=== PATIENT | male | born 1970 | race American Indian/Alaskan Native ===

== ENCOUNTER 2016-08-27 02:54 | Emergency (ER) | payer MEDICARE ==
[2016-08-27] MEDS ORDERED: DECADRON IM ONE (04:30)
[2016-08-27] MEDS ORDERED: NORCO 10/325 PO ONE (04:30)
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
[2016-08-27 06:10] VITALS: BP 157/97
== END 2016-08-27 05:45 | disposition home or self-care (01) ==
LOC: ED 02:54
DX: M54.16 Radiculopathy, lumbar region (principal); M54.5 Low back pain; G89.29 Other chronic pain; I10 Essential (primary) hypertension; G43.909 Migraine, unspecified, not intractable, without status migrainosus; F20.9 Schizophrenia, unspecified
CPT/HCPCS: 96372; 99282; J1100

== ENCOUNTER 2016-11-01 02:50 | Emergency (ER) | payer MEDICARE ==
[2016-11-01 04:04] LABS: Anion Gap 19 mmol/L; Blood Urea Nitrogen 11 mg/dL (9-20); Calcium 8.9 mg/dL (8.4-10.2); Carbon Dioxide 21 mmol/L (22-30); Chloride 100.6 mmol/L (98-107); Glucose 117 mg/dL (75-100); Potassium 3.8 mmol/L (3.6-5.0); Sodium 137 mmol/L (137-145)
[2016-11-01 04:11] LABS: Urine Drugs of Abuse Note Disclamer
[2016-11-01 04:19] LABS: Eosinophils % (Auto) 3.3 % (0.0-4.3); Hematocrit 48.3 % (35.5-45.6); Hemoglobin 15.8 gm/dl (11.8-15.2); Mean Corpuscular HGB Conc 33 % (32-34); Mean Corpuscular Hemoglobin 29 pg (28-32); Mean Corpuscular Volume 89 fl (84-94); Platelet Count 240 K/mm3 (140-440); Red Blood Count 5.42 M/mm3 (3.65-5.03); Red Cell Distribution Width 14.4 % (13.2-15.2); White Blood Count 6.4 K/mm3 (4.5-11.0)
[2016-11-01 04:24] LABS: Bilirubin,Urine NEG (Negative); Blood,Urine SM (Negative); Ketones,Urine NEG (Negative); Leukocyte Esterase,Urine NEG (Negative); Mucus,Urine FEW /HPF; Nitrite,Urine NEG (Negative); Protein,Urine <15 mg/dL mg/dL (Negative); Urobilinogen,Urine < 2.0 mg/dL (<2.0); WBC,Urine < 1.0 /HPF (0.0-6.0)
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
[2016-11-01 08:20] VITALS: BP 140/90
--- NOTE | 2016-11-01 08:39 | Cat Scan Report ---
FINAL REPORT EXAM: CT HEAD/BRAIN WO CON HISTORY: headache TECHNIQUE: CT of the head was performed. No intravenous contrast was administered. PRIORS: None. FINDINGS: There is no evidence of intracranial hemorrhage. There is no edema, mass effect or midline shift. There are no abnormal extra-axial fluid collections. The ventricles are appropriate for brain volume. There is no skull fracture seen. Left maxillary sinus mucosal thickening. IMPRESSION: There is no acute intracranial abnormality identified. There is some left maxillary sinus mucosal thickening.
[2016-11-01] MEDS ORDERED: ATIVAN PO ONE (10:31)
[2016-11-01] MEDS ORDERED: FIORICET PO ONE (10:31)
== END 2016-11-01 10:52 | disposition home or self-care (01) ==
LOC: ED 02:50
DX: F25.0 Schizoaffective disorder, bipolar type (principal); R51 Headache; I10 Essential (primary) hypertension; G43.909 Migraine, unspecified, not intractable, without status migrainosus; F20.9 Schizophrenia, unspecified
CPT/HCPCS: 36415; 70450; 80048; 80307; 81001; 85025; 99284; G0480; 80320

== ENCOUNTER 2016-11-05 18:10 | Emergency (ER) | payer MEDICARE ==
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
[2016-11-05 20:33] VITALS: BP 142/102
== END 2016-11-05 20:37 | disposition home or self-care (01) ==
LOC: ED 18:10
DX: I10 Essential (primary) hypertension (principal); G43.909 Migraine, unspecified, not intractable, without status migrainosus; F20.9 Schizophrenia, unspecified; F17.200 Nicotine dependence, unspecified, uncomplicated
CPT/HCPCS: 99282

== ENCOUNTER 2017-02-28 12:37 | Emergency (ER) | payer MEDICARE ==
[2017-02-28 13:12] LABS: Basophils % (Auto) 0.9 % (0.0-1.8); Eosinophils % (Auto) 0.4 % (0.0-4.3); Hematocrit 45.7 % (35.5-45.6); Hemoglobin 15.3 gm/dl (11.8-15.2); Mean Corpuscular HGB Conc 34 % (32-34); Mean Corpuscular Hemoglobin 30 pg (28-32); Mean Corpuscular Volume 89 fl (84-94); Platelet Count 217 K/mm3 (140-440); Red Blood Count 5.16 M/mm3 (3.65-5.03); Red Cell Distribution Width 14.2 % (13.2-15.2); White Blood Count 6.1 K/mm3 (4.5-11.0)
[2017-02-28 13:22] LABS: Anion Gap 19 mmol/L; BUN/Creatinine Ratio 7.77; Blood Urea Nitrogen 7 mg/dL (9-20); Carbon Dioxide 25 mmol/L (22-30); Chloride 100.5 mmol/L (98-107); Glucose 108 mg/dL (75-100); Potassium 3.6 mmol/L (3.6-5.0); Sodium 141 mmol/L (137-145)
[2017-02-28 13:52] LABS: Urine Drugs of Abuse Note Disclamer
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
[2017-02-28 14:07] LABS: Bacteria,Urine 1+ /HPF (Negative); Bilirubin,Urine NEG (Negative); Blood,Urine SM (Negative); Ketones,Urine NEG (Negative); Leukocyte Esterase,Urine NEG (Negative); Mucus,Urine 2+ /HPF; Nitrite,Urine NEG (Negative); Protein,Urine <15 mg/dL mg/dL (Negative); Urobilinogen,Urine < 2.0 mg/dL (<2.0)
[2017-03-01] MEDS ORDERED: MOTRIN PO ONE (15:09)
[2017-03-02] MEDS ORDERED: MOTRIN PO ONE (06:04)
[2017-03-03 16:52] VITALS: BP 142/88
== END 2017-03-03 16:52 ==
LOC: EEVIPCON 12:37 → ED 12:37
DX: F23 Brief psychotic disorder (principal); R45.851 Suicidal ideations; R44.0 Auditory hallucinations; I10 Essential (primary) hypertension; G43.909 Migraine, unspecified, not intractable, without status migrainosus; F20.9 Schizophrenia, unspecified; F12.10 Cannabis abuse, uncomplicated; F14.10 Cocaine abuse, uncomplicated; F17.200 Nicotine dependence, unspecified, uncomplicated
CPT/HCPCS: 36415; 80048; 80307; 81001; 85025; 99285; G0480; 80320

== ENCOUNTER 2017-07-05 19:11 | Emergency (ER) | payer MEDICARE ==
[2017-07-05 20:44] LABS: Basophils # (Auto) 0.1 K/mm3 (0.0-0.1); Basophils % (Auto) 1.1 % (0.0-1.8); Eosinophils # (Auto) 0.1 K/mm3 (0.0-0.4); Eosinophils % (Auto) 1.1 % (0.0-4.3); Hematocrit 48.3 % (35.5-45.6); Hemoglobin 15.9 gm/dl (11.8-15.2); Lymphocytes % (Auto) 40.1 % (13.4-35.0); Mean Corpuscular HGB Conc 33 % (32-34); Mean Corpuscular Hemoglobin 30 pg (28-32); Mean Corpuscular Volume 90 fl (84-94); Monocytes # (Auto) 0.5 K/mm3 (0.0-0.8); Monocytes % (Auto) 9.7 % (0.0-7.3); Platelet Count 209 K/mm3 (140-440); Red Blood Count 5.35 M/mm3 (3.65-5.03); Red Cell Distribution Width 14.1 % (13.2-15.2)
[2017-07-05 20:46] LABS: BUN/Creatinine Ratio 10; Blood Urea Nitrogen 11 mg/dL (9-20); Calcium 9.1 mg/dL (8.4-10.2); Hemolysis Index 5
[2017-07-06] MEDS ORDERED: TYLENOL ONE (01:29)
[2017-07-06] MEDS ORDERED: TYLENOL PO ONE ×2 (01:32→09:48)
[2017-07-06 03:26] LABS: Bacteria,Urine 1+ /HPF (Negative); Bilirubin,Urine NEG (Negative); Blood,Urine SM (Negative); Calcium Oxalate Crystals,Urine 1+; Color,Urine Yellow (Yellow); Mucus,Urine 1+ /HPF; Nitrite,Urine NEG (Negative); Protein,Urine <15 mg/dL mg/dL (Negative)
[2017-07-06 03:40] LABS: Amphetamine Screen,Urine PRESUMPTIVE NEGATIVE; Benzodiazepines Screen,Urine PRESUMPTIVE NEGATIVE; Methadone Screen,Urine PRESUMPTIVE NEGATIVE; Opiate Screen,Urine PRESUMPTIVE NEGATIVE
[2017-07-06 03:53] LABS: Cannabinoid Screen,Urine PRESUMPTIVE POSITIVE; Cocaine Screen,Urine PRESUMPTIVE POSITIVE
[2017-07-06] MEDS ORDERED: NORVASC PO ONE ×3 (17:11→17:27)
[2017-07-06] MEDS ORDERED: MOTRIN PO ONE (17:27)
[2017-07-06] MEDS ORDERED: K-DUR PO ONE (17:31)
[2017-07-06] MEDS ORDERED: FLOMAX PO ONE (18:00)
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
[2017-07-06] MEDS ORDERED: MOTRIN PO PRN (20:09)
[2017-07-07] MEDS ORDERED: NORVASC PO SCH ×2 (10:00)
[2017-07-07] MEDS: FLOMAX PO SCH (11:00)
[2017-07-07] MEDS: NORVASC PO SCH (11:00)
[2017-07-07] MEDS ORDERED: FLOMAX PO SCH (22:00)
[2017-07-08] MEDS: FLOMAX PO SCH (11:02)
[2017-07-08] MEDS: NORVASC PO SCH (11:02)
[2017-07-08 11:05] VITALS: BP 162/100
--- NOTE | 2017-07-08 13:56 | Consultation ---
History of Present Illness - Reason for Consult Consult date: 07/08/17 Reason for consult: Mental Health Evaluation Requesting physician: NI NOE - Chief Complaint Chief complaint: "Why do people do me this way" - History of Present Psychiatric Illness 47 y.o. AA male presenting to the ER for SI/HI's. Today the patient is calm, cooperative, but hyper verbal during the assessment. He stated that everyone person in [place] need to be killed, because they have some ideas why he hae a mental illness. The patient had to be redirected several time to keep him on topic. When he was asked who he want to kill, he stated, "You know who they are. " He stated not sleeping the past 4 days because he don't feels that he need rest. When the patient is asked questions, most of his answers were not logical. He denies VH's. He could not confirm or deny being homicidal or suicidal when asked. He denies a poor appetite. He admitted recreational drug use, but denies alcohol consumption (etoh). Medications and Allergies Allergies Allergy/AdvReac Type Severity Reaction Status Date / Time No Known Allergies Allergy Verified 03/01/17 16:47 Home Medications Medication Instructions Recorded Confirmed Last Taken Type Asenapine Maleate [Saphris] 10 mg SL QHS 04/16/13 07/06/17 12/02/[address] [Depakote] 250 mg PO QAM 04/16/13 07/06/17 12/02/13 History Divalproex ER [Depakote ER] 500 mg PO QHS 12/03/13 07/06/17 12/02/13 History amLODIPine [Norvasc] 5 mg PO DAILY #30 tab 11/05/16 07/06/17 Unknown Rx Past psychiatric history - Past Medical History Past Medical History: No medical history Past Surgical History: No surgical history - past Psychiatric treatment and history psychiatric treatment history: Multiple inpatient psy services. Denies a fam psy hx. - Social History Social history: other (Homeless) Mental Status Exam - Vital signs Last Vital Signs Temp 98 F 07/08/17 10:00 Pulse 88 07/08/17 11:02 Resp 18 07/08/17 12:07 BP 162/100 07/08/17 11:02 Pulse Ox 99 01/18/18 12:07 - Exam Narrative exam: MSE: Appearance: calm, cooperative Behavior: regular eye contact Speech: regular rate and tone, hyper verbal Mood: "tired" Affect: congruent to mood Thought Process: tangential Thought Content: denies VH's, delusional, disorganized Motor Activity: ambulatory Cognition: A/O x 3 Insight: poor Judgment: poor Results Result Diagrams: 07/05/17 20:00 07/05/17 20:00 All other labs normal. Assessment and Plan Assessment and plan: Impression: Unspecified Mood DO with psy features. Substance Use DO (cocaine/ marijuana). Today the patient is calm, cooperative, but hyper verbal during the assessment. Patient endorses SI/HI's. DDx: Bipolar DO, R/O Schizaffective DO, R/O Substance Induced Mood/Psychotic DO Recommendation/Plan: Continue 1013 with placement to [facility] today.
== END 2017-07-08 13:17 ==
LOC: EEVIPCON 19:11 → ED 19:11
DX: F20.9 Schizophrenia, unspecified (principal); F29 Unspecified psychosis not due to a substance or known physiological condition; I10 Essential (primary) hypertension; F14.10 Cocaine abuse, uncomplicated; G43.909 Migraine, unspecified, not intractable, without status migrainosus; F17.200 Nicotine dependence, unspecified, uncomplicated; F12.10 Cannabis abuse, uncomplicated
CPT/HCPCS: 36415; 80048; 80307; 81001; 82550; 85025; 99285; G0480; 80320

== ENCOUNTER 2018-04-09 00:09 | Emergency (ER) | payer MEDICARE ==
[2018-04-09 01:13] VITALS: BP 152/91
[2018-04-09 01:44] LABS: Basophils % (Auto) 0.7 % (0.0-1.8); Eosinophils # (Auto) 0.2 K/mm3 (0.0-0.4); Eosinophils % (Auto) 3.2 % (0.0-4.3); Hematocrit 39.2 % (35.5-45.6); Hemoglobin 13.1 gm/dl (11.8-15.2); Lymphocytes % (Auto) 42.5 % (13.4-35.0); Mean Corpuscular HGB Conc 33 % (32-34); Mean Corpuscular Hemoglobin 29 pg (28-32); Mean Corpuscular Volume 88 fl (84-94); Monocytes # (Auto) 0.7 K/mm3 (0.0-0.8); Monocytes % (Auto) 9.8 % (0.0-7.3); Platelet Count 264 K/mm3 (140-440); Red Blood Count 4.45 M/mm3 (3.65-5.03); Red Cell Distribution Width 15.3 % (13.2-15.2)
[2018-04-09 01:57] LABS: BUN/Creatinine Ratio 16; Blood Urea Nitrogen 14 mg/dL (9-20); Calcium 9.4 mg/dL (8.4-10.2); Hemolysis Index 10
[2018-04-09 02:00] LABS: Bilirubin,Urine NEG (Negative); Blood,Urine NEG (Negative); Color,Urine Yellow (Yellow); Mucus,Urine 1+ /HPF
== END 2018-04-09 03:04 | disposition left against medical advice (07) ==
LOC: ED 00:09
DX: N42.9 Disorder of prostate, unspecified (principal); Z53.21 Procedure and treatment not carried out due to patient leaving prior to being seen by health care provider
CPT/HCPCS: 36415; 80048; 81001; 85025

== ENCOUNTER 2018-04-09 08:39 | Emergency (ER) | payer MEDICARE ==
--- NOTE | 2018-04-09 10:04 | Emergency Department Report ---
Chief Complaint: Urogenital-Male Stated Complaint: PROSTATE PROBLEM Time Seen by Provider: 04/09/18 09:36 - HPI History of Present Illness: Mr. Cordova was inappropriately discharged before my evaluation. Our staff has made several attempts to contact patient to return for appropriate care. - Exam Vital Signs: Vital Signs 04/09/18 08:46 Temperature 98.8 F Pulse Rate 92 H Respiratory 18 Rate Blood Pressure 168/88 O2 Sat by Pulse 99 Oximetry MSE screening note: Focused history and physical exam performed. Due to findings the following was ordered: ED Disposition for MSE Condition: Stable Referrals: PRIMARY CARE, [Primary Care Provider] - 3-5 Days
[2018-04-09 14:22] VITALS: BP 150/75
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
== END 2018-04-09 14:59 | disposition home or self-care (01) ==
LOC: ED 08:39
DX: N40.0 Benign prostatic hyperplasia without lower urinary tract symptoms (principal); F25.9 Schizoaffective disorder, unspecified; I10 Essential (primary) hypertension; G43.909 Migraine, unspecified, not intractable, without status migrainosus; F32.9 Major depressive disorder, single episode, unspecified; F17.200 Nicotine dependence, unspecified, uncomplicated; F14.90 Cocaine use, unspecified, uncomplicated; F10.920 Alcohol use, unspecified with intoxication, uncomplicated
CPT/HCPCS: 36415; 80048; 81001; 85025; 99282

== ENCOUNTER 2018-09-05 22:01 | Emergency (ER) | payer MEDICARE ==
[2018-09-05 23:06] VITALS: BP 157/101
[2018-09-06] MEDS ORDERED: IBUPROFEN PO ONE (04:47)
[2018-09-06] MEDS ORDERED: FLEXERIL PO ONE (04:47)
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
== END 2018-09-06 05:15 | disposition home or self-care (01) ==
LOC: ED 22:01
DX: M54.32 Sciatica, left side (principal); I10 Essential (primary) hypertension; G43.909 Migraine, unspecified, not intractable, without status migrainosus; F31.9 Bipolar disorder, unspecified; N40.0 Benign prostatic hyperplasia without lower urinary tract symptoms
CPT/HCPCS: 99282

== ENCOUNTER 2019-01-12 02:13 | Emergency (ER) | payer MEDICARE ==
[2019-01-12] MEDS ORDERED: DELTASONE PO ONE (03:08)
[2019-01-12] MEDS ORDERED: TORADOL IM ONE (03:08)
[2019-01-12] MEDS ORDERED: NORVASC PO ONE (03:16)
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
[2019-01-12 03:25] VITALS: BP 160/106
== END 2019-01-12 03:25 | disposition home or self-care (01) ==
LOC: ED 02:13
DX: S39.012A Strain of muscle, fascia and tendon of lower back, initial encounter (principal); I10 Essential (primary) hypertension; G43.909 Migraine, unspecified, not intractable, without status migrainosus; F20.9 Schizophrenia, unspecified; F32.9 Major depressive disorder, single episode, unspecified; N40.0 Benign prostatic hyperplasia without lower urinary tract symptoms; X58.XXXA Exposure to other specified factors, initial encounter; Y93.89 Activity, other specified; Y92.89 Other specified places as the place of occurrence of the external cause; Y99.8 Other external cause status
CPT/HCPCS: 96372; 99282; J1885; J7512

== ENCOUNTER 2019-01-16 01:42 | Emergency (ER) | payer MEDICARE ==
[2019-01-16 01:54] VITALS: BP 149/89
== END 2019-01-16 03:55 | disposition home or self-care (01) ==
LOC: ED 01:42
DX: M25.552 Pain in left hip (principal); Z53.21 Procedure and treatment not carried out due to patient leaving prior to being seen by health care provider
CPT/HCPCS: 99282

== ENCOUNTER 2019-05-27 01:41 | Emergency (ER) | payer MEDICARE ==
[2019-05-27] MEDS ORDERED: KETOROLAC 30 MG/1 ML INJ IM ONE (03:22)
[2019-05-27] MEDS ORDERED: diphenhydrAMINE 25 MG/10 ML ORAL LIQUID PO ONE (03:22)
[2019-05-27 03:29] LABS: Basophils % (Auto) 0.9 % (0.0-1.8); Eosinophils # (Auto) 0.1 K/mm3 (0.0-0.4); Eosinophils % (Auto) 2.4 % (0.0-4.3); Hematocrit 51.4 % (35.5-45.6); Lymphocytes # (Auto) 1.9 K/mm3 (1.2-5.4); Mean Corpuscular HGB Conc 33 % (32-34); Mean Corpuscular Volume 91 fl (84-94); Monocytes # (Auto) 0.5 K/mm3 (0.0-0.8); Monocytes % (Auto) 9.4 % (0.0-7.3); Platelet Count 232 K/mm3 (140-440); Red Blood Count 5.62 M/mm3 (3.65-5.03); Red Cell Distribution Width 13.8 % (13.2-15.2)
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
[2019-05-27 03:56] LABS: BUN/Creatinine Ratio 12; Blood Urea Nitrogen 11 mg/dL (9-20); Calcium 9.5 mg/dL (8.4-10.2); Hemolysis Index 11
[2019-05-27 04:14] LABS: Bilirubin,Urine NEG (Negative); Blood,Urine NEG (Negative); Calcium Oxalate Crystals,Urine 1+; Color,Urine Yellow (Yellow); Mucus,Urine FEW /HPF; Protein,Urine <15 mg/dL mg/dL (Negative); Urobilinogen,Urine < 2.0 mg/dL (<2.0)
[2019-05-27 04:28] LABS: Amphetamine Screen,Urine PRESUMPTIVE NEGATIVE; Benzodiazepines Screen,Urine PRESUMPTIVE NEGATIVE; Methadone Screen,Urine PRESUMPTIVE NEGATIVE; Opiate Screen,Urine PRESUMPTIVE NEGATIVE
[2019-05-27 04:34] LABS: Cannabinoid Screen,Urine PRESUMPTIVE POSITIVE; Cocaine Screen,Urine PRESUMPTIVE POSITIVE
[2019-05-27] MEDS ORDERED: IBUPROFEN 600 MG TAB PO ONE (17:24)
[2019-05-27 21:24] VITALS: BP 136/74
[2019-05-27] MEDS ORDERED: ACETAMINOPHEN 325 MG TAB ONE (22:21)
[2019-05-27] MEDS ORDERED: ACETAMINOPHEN 325 MG TAB PO ONE (22:42)
== END 2019-05-28 00:21 ==
LOC: ED 01:41
DX: F32.9 Major depressive disorder, single episode, unspecified (principal); F20.9 Schizophrenia, unspecified; F17.200 Nicotine dependence, unspecified, uncomplicated; F12.10 Cannabis abuse, uncomplicated; F14.10 Cocaine abuse, uncomplicated; M54.42 Lumbago with sciatica, left side; M54.41 Lumbago with sciatica, right side; G89.29 Other chronic pain; Z79.899 Other long term (current) drug therapy
CPT/HCPCS: 36415; 80048; 80307; 81001; 85025; 90471; 99285; J1885; 80320; 96372; G0480; Q0163

== ENCOUNTER 2019-07-16 23:38 | Emergency (ER) | payer MEDICARE ==
[2019-07-17 04:04] LABS: Bilirubin,Urine NEG (Negative); Blood,Urine NEG (Negative); Color,Urine Yellow (Yellow); Hyaline Casts,Urine 1 /LPF; Mucus,Urine FEW /HPF; Protein,Urine <15 mg/dL mg/dL (Negative)
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
[2019-07-17 05:50] VITALS: BP 146/88
== END 2019-07-17 05:50 | disposition home or self-care (01) ==
LOC: ED 23:38
DX: N39.9 Disorder of urinary system, unspecified (principal); R10.9 Unspecified abdominal pain; I10 Essential (primary) hypertension; F31.9 Bipolar disorder, unspecified; G43.009 Migraine without aura, not intractable, without status migrainosus; F17.200 Nicotine dependence, unspecified, uncomplicated; Z98.890 Other specified postprocedural states; Z79.899 Other long term (current) drug therapy
CPT/HCPCS: 81001

== ENCOUNTER 2019-11-15 00:32 | Emergency (ER) | payer MEDICARE ==
[2019-11-15 02:35] LABS: Bilirubin,Urine NEG (Negative); Blood,Urine NEG (Negative); Color,Urine Yellow (Yellow); Mucus,Urine FEW /HPF; Protein,Urine <15 mg/dL mg/dL (Negative); Urobilinogen,Urine < 2.0 mg/dL (<2.0); WBC,Urine < 1.0 /HPF (0.0-6.0)
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
[2019-11-15 04:08] VITALS: BP 166/86
== END 2019-11-15 03:40 | disposition home or self-care (01) ==
LOC: ED 00:32
DX: R30.0 Dysuria (principal); I10 Essential (primary) hypertension; G43.909 Migraine, unspecified, not intractable, without status migrainosus; F25.0 Schizoaffective disorder, bipolar type; F17.200 Nicotine dependence, unspecified, uncomplicated; F12.90 Cannabis use, unspecified, uncomplicated; F14.90 Cocaine use, unspecified, uncomplicated; Z79.899 Other long term (current) drug therapy; Z98.890 Other specified postprocedural states
CPT/HCPCS: 81001; 99283

== ENCOUNTER 2019-11-22 12:57 | Emergency (ER) | payer MEDICARE ==
[2019-11-22 15:39] LABS: Basophils % (Auto) 0.5 % (0.0-1.8); Eosinophils % (Auto) 0.4 % (0.0-4.3); Hematocrit 45.3 % (35.5-45.6); Lymphocytes # (Auto) 2.6 K/mm3 (1.2-5.4); Mean Corpuscular HGB Conc 33 % (32-34); Mean Corpuscular Volume 87 fl (84-94); Monocytes # (Auto) 0.8 K/mm3 (0.0-0.8); Monocytes % (Auto) 9.9 % (0.0-7.3); Platelet Count 220 K/mm3 (140-440); Red Blood Count 5.21 M/mm3 (3.65-5.03); Red Cell Distribution Width 14.4 % (13.2-15.2)
[2019-11-22 15:59] LABS: BUN/Creatinine Ratio 16; Blood Urea Nitrogen 14 mg/dL (9-20); Calcium 9.4 mg/dL (8.4-10.2); Hemolysis Index 2
[2019-11-22 16:22] LABS: Amphetamine Screen,Urine PRESUMPTIVE NEGATIVE; Benzodiazepines Screen,Urine PRESUMPTIVE NEGATIVE; Cannabinoid Screen,Urine PRESUMPTIVE NEGATIVE; Methadone Screen,Urine PRESUMPTIVE NEGATIVE; Opiate Screen,Urine PRESUMPTIVE NEGATIVE
[2019-11-22 16:33] LABS: Bilirubin,Urine NEG (Negative); Blood,Urine NEG (Negative); Color,Urine Yellow (Yellow); Mucus,Urine 1+ /HPF; Protein,Urine <15 mg/dL mg/dL (Negative); Urobilinogen,Urine < 2.0 mg/dL (<2.0)
[2019-11-22 16:40] LABS: Cocaine Screen,Urine PRESUMPTIVE POSITIVE
[2019-11-23] MEDS ORDERED: IBUPROFEN 800 MG TAB PO ONE (20:39)
[2019-11-23] MEDS: traZODone 50 MG TAB PO SCH (21:08)
[2019-11-23] MEDS ORDERED: MELATONIN 5 MG TAB PO SCH (22:00)
[2019-11-24] MEDS ORDERED: amLODIPine 5 MG TAB ONE (07:50)
[2019-11-24] MEDS: traZODone 50 MG TAB PO SCH (07:55)
[2019-11-24] MEDS ORDERED: amLODIPine 5 MG TAB PO SCH (10:00)
[2019-11-24] MEDS ORDERED: ZIPRASIDONE MESYLATE 20 MG VIAL IM PRN (10:48)
[2019-11-24] MEDS ORDERED: DIVALPROEX DR 125 MG TAB PO SCH (11:00)
[2019-11-24] MEDS ORDERED: NON-FORMULARY EACH (Flomax 0.4 MG) PO SCH (14:30)
[2019-11-24] MEDS ORDERED: TAMSULOSIN 0.4 MG CAP PO SCH (15:00)
[2019-11-24 20:01] VITALS: BP 152/79
[2019-11-24] MEDS ORDERED: risperiDONE 0.25 MG TAB PO SCH (22:00)
== END 2019-11-24 20:15 | disposition home or self-care (01) ==
LOC: EEVIPCON 12:57 → ED 12:57
DX: F14.10 Cocaine abuse, uncomplicated (principal); R45.851 Suicidal ideations; I10 Essential (primary) hypertension; G43.909 Migraine, unspecified, not intractable, without status migrainosus; F25.1 Schizoaffective disorder, depressive type; F17.200 Nicotine dependence, unspecified, uncomplicated; F12.90 Cannabis use, unspecified, uncomplicated; Z79.899 Other long term (current) drug therapy; Z98.890 Other specified postprocedural states
CPT/HCPCS: 36415; 80048; 80307; 80320; 81001; 85025; G0480

== ENCOUNTER 2019-11-24 11:37 | Inpatient (IN) | payer MEDICARE ==
[2019-11-24 21:20] LABS: Basophils % (Auto) 0.7 % (0.0-1.8); Eosinophils # (Auto) 0.2 K/mm3 (0.0-0.4); Eosinophils % (Auto) 5.1 % (0.0-4.3); Hematocrit 46.1 % (35.5-45.6); Hemoglobin 15.3 gm/dl (11.8-15.2); Lymphocytes # (Auto) 1.7 K/mm3 (1.2-5.4); Lymphocytes % (Auto) 43.3 % (13.4-35.0); Mean Corpuscular HGB Conc 33 % (32-34); Mean Corpuscular Volume 88 fl (84-94); Monocytes # (Auto) 0.5 K/mm3 (0.0-0.8); Platelet Count 188 K/mm3 (140-440); Red Blood Count 5.25 M/mm3 (3.65-5.03); Red Cell Distribution Width 14.4 % (13.2-15.2)
[2019-11-24 21:41] LABS: Alanine Aminotransferase 27 units/L (7-56); Albumin 4.4 g/dL (3.9-5); BUN/Creatinine Ratio 18; Blood Urea Nitrogen 16 mg/dL (9-20); Chol/HDL Ratio 3.66 %; HDL Cholesterol 48 mg/dL (40-59); Hemolysis Index 18; LDL Cholesterol,Direct 122 mg/dL (50-130)
[2019-11-25 01:25] LABS: Bacteria,Urine 1+ /HPF (Negative); Bilirubin,Urine NEG (Negative); Blood,Urine NEG (Negative); Calcium Oxalate Crystals,Urine FEW; Color,Urine Yellow (Yellow); Protein,Urine <15 mg/dL mg/dL (Negative); WBC,Urine < 1.0 /HPF (0.0-6.0)
[2019-11-28 10:12] VITALS: BP 158/93
== END 2019-11-28 11:25 | disposition home or self-care (01) | DRG 885 ==
LOC: 3A 11:37 → UNDOADMIN 11:37 → 5A 20:41
PROVIDERS: ADMIT Psychiatry & Neurology Psychiatry; ATTEND Psychiatry & Neurology Psychiatry
DX: F25.9 Schizoaffective disorder, unspecified (principal); I10 Essential (primary) hypertension; N40.0 Benign prostatic hyperplasia without lower urinary tract symptoms; G89.29 Other chronic pain; F17.210 Nicotine dependence, cigarettes, uncomplicated
CPT/HCPCS: 36415; 80048; 80053; 80061; 80307; 80320; 81001; 82962; 83036; 84443; 85025; G0378; G0480; J3486

== ENCOUNTER 2020-02-29 02:53 | Emergency (ER) | payer MEDICARE ==
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
[2020-02-29 07:26] VITALS: BP 127/104
== END 2020-02-29 07:24 | disposition home or self-care (01) ==
LOC: ED 02:53
DX: M54.42 Lumbago with sciatica, left side (principal); I10 Essential (primary) hypertension; F25.1 Schizoaffective disorder, depressive type; G43.909 Migraine, unspecified, not intractable, without status migrainosus; Z79.899 Other long term (current) drug therapy; Z98.890 Other specified postprocedural states
CPT/HCPCS: 82962; 99283

== ENCOUNTER 2020-03-15 22:48 | Emergency (ER) | payer MEDICARE ==
[2020-03-15 22:58] VITALS: BP 173/93
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
== END 2020-03-16 00:10 | disposition home or self-care (01) ==
LOC: ED 22:48
DX: L73.8 Other specified follicular disorders (principal); I10 Essential (primary) hypertension; G43.909 Migraine, unspecified, not intractable, without status migrainosus; F20.89 Other schizophrenia; F32.89 Other specified depressive episodes; F17.200 Nicotine dependence, unspecified, uncomplicated; F12.10 Cannabis abuse, uncomplicated; Z79.899 Other long term (current) drug therapy
CPT/HCPCS: 99282

== ENCOUNTER 2020-04-26 10:57 | Emergency (ER) | payer MEDICARE ==
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
[2020-04-26 13:09] LABS: Basophils % (Auto) 0.8 % (0.0-1.8); Eosinophils # (Auto) 0.1 K/mm3 (0.0-0.4); Eosinophils % (Auto) 2.4 % (0.0-4.3); Hematocrit 47.4 % (35.5-45.6); Hemoglobin 15.7 gm/dl (11.8-15.2); Lymphocytes # (Auto) 1.9 K/mm3 (1.2-5.4); Lymphocytes % (Auto) 35.5 % (13.4-35.0); Mean Corpuscular HGB Conc 33 % (32-34); Mean Corpuscular Volume 90 fl (84-94); Monocytes # (Auto) 0.7 K/mm3 (0.0-0.8); Monocytes % (Auto) 12.5 % (0.0-7.3); Platelet Count 213 K/mm3 (140-440); Red Blood Count 5.28 M/mm3 (3.65-5.03); Red Cell Distribution Width 14.2 % (13.2-15.2)
[2020-04-26 13:29] LABS: BUN/Creatinine Ratio 13; Blood Urea Nitrogen 13 mg/dL (9-20); Hemolysis Index 14
[2020-04-26] MEDS ORDERED: IBUPROFEN 800 MG TAB PO ONE (16:49)
[2020-04-26] MEDS ORDERED: ZIPRASIDONE MESYLATE 20 MG VIAL IM ONE (22:04)
[2020-04-26] MEDS ORDERED: WATER FOR INJ Sterile (PF) 10 ML ONE (22:09)
[2020-04-27] MEDS ORDERED: CYCLOBENZAPRINE 10 MG TAB PO PRN (08:41)
[2020-04-27] MEDS: IBUPROFEN 800 MG TAB PO PRN ×2 (09:56→22:12)
--- NOTE | 2020-04-27 09:57 | Consultation ---
History of Present Illness - Reason for Consult Consult date: 04/27/20 Reason for consult: SI/HI - History of Present Psychiatric Illness Sebastián Cordova is a 50y/o male patient who is known to me from previous visits. He is here today verbalizing A/V hallucinations, and homicidal thoughts. The patient is hyperverbal. He is stating that his "vision is messed up." He says "it has gotten worse. They have started to distort my thought process and trying to make me like men." He then says, "that aint gone never happen cause I don't like no men." The patient says "it's sexual." He then says "voices are derogatory and sexual. I don't know what to do about it." He says he did "cocaine and maybe took some pills with meth in them." The patient also states he "smokes weed." PAST PSYCHIATRIC HISTORY Diagnoses: Bipolar schizophrenia Suicide attempts or Self-harm behavior: Yes in 2006 Prior psychiatric hospitalizations: Yes Substance Abuse history: cocaine, meth, THC Previous psychiatric medications tried: Yes multiple Outpatient treatment: Yes noncompliant PAST MEDICAL HISTORY: Chronic pain Family Psychiatric History: None reported or documented SOCIAL HISTORY Marital Status: Living Arrangements: Homeless but says he can stay with a friend Employment Status: Unemployed, disabled Access to guns/weapons: None reported Education: Ninth grade History of Abuse: None reported Legal History: Yes REVIEW OF SYSTEMS Constitutional: Negative for weight loss ENT: Negative for stridor Respiratory: Negative for cough or hemoptysis All other systems reviewed and are negative MENTAL STATUS EXAMINATION General Appearance: Dressed appropriately. Behavior: Cooperative Mood: "irritable" Affect: Congruent with stated mood Speech: Normal tone,increased pace, hyperverbal Thought Process: Goal directed Suicidal Ideation: Yes Homicidal Ideation: Denies Hallucinations: Auditory/Visual Delusions: Paranoid Insight and Judgment: Limited Memory/Cognition: Limited ASSESSMENT Schizoaffective Disorder, Bypolar Type Cocaine Use Disorder Noncompliance with medical regimen and other treatments Substance Induced Mood Disorder TREATMENT PLAN [address] 125mg po BID Risperidone 1mg po BID Sitter: Defer to primary Medical: Per primary Disposition: Recommend acute inpatient psychiatric treatment Will follow. Thank you for this consult. Medications and Allergies Allergies Allergy/AdvReac Type Severity Reaction Status Date / Time No Known Allergies Allergy Verified 03/01/17 16:47 Home Medications Medication Instructions Recorded Confirmed Last Taken Type Cyclobenzaprine [Flexeril 10 MG 10 mg PO QHS PRN #10 tablet 09/06/18 04/26/20 Unknown Rx TAB] Menthol/Camphor [[place] 1 applicatio TP QID PRN #1 tube 05/27/19 04/26/20 Unknown Rx Ointment] Flomax 0.4 mg PO QDAY 11/22/19 04/26/20 Unknown History Gabapentin 300 mg PO QDAY 11/22/19 04/26/20 Unknown History traZODone 150 mg PO HS 11/22/19 04/26/20 Unknown History amLODIPine 5 mg PO DAILY #30 tab 02/29/20 04/26/20 Unknown Rx Mupirocin [Bactroban 2% OINT] 1 applic TP TID 7 Days #1 tube 03/16/20 04/26/20 Unknown Rx Sulfamethoxazole/Trimethoprim 1 each PO BID 10 Days #20 tablet 03/16/20 04/26/20 Unknown Rx [Bactrim DS TAB] Ibuprofen 800 mg PO TID PRN 04/26/20 04/26/20 Unknown History Active Meds: Active Medications Amlodipine Besylate (Amlodipine) 5 mg PO DAILY STEVEN Cyclobenzaprine HCl (Flexeril) 10 mg PO QHS PRN PRN Reason: Muscle Spasm Gabapentin (Gabapentin) 300 mg PO DAILY STEVEN Ibuprofen (Ibuprofen) 800 mg PO TID PRN PRN Reason: Pain , Severe (7-10) Tamsulosin HCl (Flomax) 0.4 mg PO QDAY STEVEN Trazodone HCl (Desyrel) 150 mg PO QHS [facility] Mental Status Exam - Vital signs Last Vital Signs Temp 98.0 F 04/27/20 08:37 Pulse 88 04/27/20 08:37 Resp 18 04/27/20 08:37 BP 135/97 04/27/20 08:37 Pulse Ox 100 04/27/20 08:37 Results Result Diagrams: 04/26/20 12:43 04/26/20 12:43 Abnormal lab results 04/26/20 04/26/20 04/26/20 Range/Units 12:43 12:43 12:43 RBC 5.28 H (3.65-5.03) M/mm3 Hgb 15.7 H (11.8-15.2) gm/dl Hct 47.4 H (35.5-45.6) % Lymph % (Auto) 35.5 H (13.4-35.0) % [place] % (Auto) 12.5 H (0.0-7.3) % Sodium 136 L (137-145) mmol/L Glucose 155 H (75-100) mg/dL Salicylates < 0.3 L (2.8-20.0) mg/dL Acetaminophen (10.0-30.0) ug/mL 04/26/20 Range/Units 12:43 RBC (3.65-5.03) M/mm3 Hgb (11.8-15.2) gm/dl Hct (35.5-45.6) % Lymph % (Auto) (13.4-35.0) % [place] % (Auto) (0.0-7.3) % Sodium (137-145) mmol/L Glucose (75-100) mg/dL Salicylates (2.8-20.0) mg/dL Acetaminophen 5.0 L (10.0-30.0) ug/mL All other labs normal.
[2020-04-27] MEDS ORDERED: GABAPENTIN 300 MG CAP PO SCH (10:00)
[2020-04-27] MEDS ORDERED: TAMSULOSIN 0.4 MG CAP PO SCH (10:00)
[2020-04-27] MEDS ORDERED: amLODIPine 5 MG TAB PO SCH (10:00)
[2020-04-27] MEDS ORDERED: NON-FORMULARY EACH (Gabapentin 300 MG) PO SCH (10:00)
[2020-04-27] MEDS ORDERED: NON-FORMULARY EACH (Flomax 0.4 MG) PO SCH (10:00)
[2020-04-27] MEDS: DIVALPROEX DR 125 MG TAB PO SCH ×2 (11:15→21:40)
[2020-04-27] MEDS: risperiDONE 1 MG TAB PO SCH ×4 (11:15→22:08)
[2020-04-27 19:38] VITALS: BP 143/90
[2020-04-27] MEDS: traZODone 50 MG TAB PO SCH ×2 (21:40→22:07)
[2020-04-27] MEDS ORDERED: TRAZODONE 150 MG PO SCH (22:00)
== END 2020-04-27 22:24 ==
LOC: ED 10:57
DX: F20.89 Other schizophrenia (principal); F32.89 Other specified depressive episodes; I10 Essential (primary) hypertension; F17.210 Nicotine dependence, cigarettes, uncomplicated; F12.10 Cannabis abuse, uncomplicated; F14.10 Cocaine abuse, uncomplicated; Z79.899 Other long term (current) drug therapy; Z98.890 Other specified postprocedural states
CPT/HCPCS: 36415; 80048; 85025; 99284; J3486; U0003; 80320; G0480

== ENCOUNTER 2020-04-27 18:22 | Inpatient (IN) | payer MEDICARE ==
[2020-04-27 20:47] LABS: Bilirubin,Urine NEG (Negative); Blood,Urine SM (Negative); Color,Urine Yellow (Yellow); Mucus,Urine FEW /HPF; Protein,Urine <15 mg/dL mg/dL (Negative)
--- NOTE | 2020-04-28 09:15 | History and Physical Report ---
GP History & Physical - History of Present Illness Date of admission: 04/27/20 Date of Examination: 04/28/20 Reason for Admission: Danger to self, Failure of Outpatient Treatment History of Present Illness: Sebastián Cordova is a 50y/o male patient who is known to me from previous visits. I also saw the patient yesterday in the ER. He was admitted to the [facility] for A/V hallucinations, and homicidal thoughts. During my interview with the krishan martínez he is lying in bed, asleep. He is a/o x 3. He is irritable and tells me "I didn't ask to come on this floor. I wanted to go to another hospital." He says he's "having negative thoughts and hearing voices." When asking the patient to elaborate on what the thoughts and hallucinations are, he states "I don't even wanna talk about it." When asking the patient was he having SI/HI, he states "yea, but it's not as bad." The patient says he has a history of "cocaine, meth and weed." He says he was diagnosed with bipolar and schizopphrenia in the past and has been off his meds. PAST PSYCHIATRIC HISTORY Diagnoses: Bipolar schizophrenia Suicide attempts or Self-harm behavior: Yes in 2006 Prior psychiatric hospitalizations: Yes Substance Abuse history: cocaine, meth, THC Previous psychiatric medications tried: Yes multiple Outpatient treatment: Yes noncompliant PAST MEDICAL HISTORY: Chronic pain Family Psychiatric History: None reported or documented SOCIAL HISTORY Marital Status: Living Arrangements: Homeless but says he can stay with a friend Employment Status: Unemployed, disabled Access to guns/weapons: None reported Education: Ninth grade History of Abuse: None reported Legal History: Yes REVIEW OF SYSTEMS Constitutional: Negative for weight loss ENT: Negative for stridor Respiratory: Negative for cough or hemoptysis All other systems reviewed and are negative MENTAL STATUS EXAMINATION General Appearance: Dressed appropriately. Behavior: Cooperative Mood: "irritable" Affect: Congruent with stated mood Speech: Normal tone, and pace Thought Process: Goal directed Suicidal Ideation: Yes Homicidal Ideation: Denies Hallucinations: Auditory Delusions: Paranoid Insight and Judgment: Limited Memory/Cognition: Limited ASSESSMENT Schizoaffective Disorder, Bypolar Type Cocaine Use Disorder Noncompliance with medical regimen and other treatments Treatment Plan Patient admitted for inpatient psychiatric evaluation, medication adjustment and close monitoring The patient's behavior, mood, sleep and appetite will be closely monitored. Patient enrolled in individual and group therapeutic sessions and encouraged to attend. Patient provided with a safe and structured environment. Patient's physical health needs will be addressed by the Hospitalist. Hospitalist Consulted Labs including CBC, CMP, Lipid profile and Hemoglobin A1C levels ordered for baseline reference Restarted home meds Social Assessment will be completed and the Technical Planner will work with patient and family to ensure a suitable and safe disposition Medication adjustment will be made as clinically indicated Usual Wellness [employer]/Preservation: - Start Trazodone 50 mg po QHS & 50 mg po QHS PRN between 10 PM & 2 AM for insomnia - Start Melatonin 5 mg po QHS to promote circadian rhythm - Start [place]-3 for brain health, reduce impulsivity, and as adjunctive treatment for mood disorder, continue upon discharge given overall benefits. - Start B1 prophylaxis with 200 mg po for 5 days Estimated days: 3 Post hospital care: primary care provider, psychiatric provider This certifies that Sebastián Cordova is a 50y/o male patient who is expected to improved for the condition of Schizoaffective Disorder, with the symptoms of psychosis, negative thoughts and SI/HI. ELOS (7 days) Outpatient treatment upon discharge Legal Status: Voluntary Reaction to Hospitalization: Accepting Medications and Allergies Allergies Allergy/AdvReac Type Severity Reaction Status Date / Time No Known Allergies Allergy Verified 03/01/17 16:47 Home Medications Medication Instructions Recorded Confirmed Last Taken Type Cyclobenzaprine [Flexeril 10 MG 10 mg PO QHS PRN #10 tablet 09/06/18 04/28/20 Unknown Rx TAB] Menthol/Camphor [[place] 1 applicatio TP QID PRN #1 tube 05/27/19 04/28/20 Unknown Rx Ointment] Flomax 0.4 mg PO QDAY 11/22/19 04/28/20 Unknown History Gabapentin 300 mg PO QDAY 11/22/19 04/28/20 Unknown History traZODone 150 mg PO HS 11/22/19 04/28/20 Unknown History amLODIPine 5 mg PO DAILY #30 tab 02/29/20 04/28/20 Unknown Rx Mupirocin [Bactroban 2% OINT] 1 applic TP TID 7 Days #1 tube 03/16/20 04/28/20 Unknown Rx Ibuprofen 800 mg PO TID PRN 04/26/20 04/28/[address] 125 mg PO BID 04/28/20 04/28/20 Unknown History Sulfamethoxazole/Trimethoprim 1 tab PO BID 04/28/20 04/28/20 Unknown History [Bactrim DS TAB] risperiDONE 1 mg PO BID 04/28/20 04/28/20 Unknown History Results - Results Labs/Vitals: Laboratory Last Values POC Glucose 98 mg/dL (70-105) 04/27/20 23:53 Urine Color Yellow (Yellow) 04/27/20 Unknown Urine Turbidity Clear (Clear) 04/27/20 Unknown Urine pH 5.0 (5.0-7.0) 04/27/20 Unknown Ur Specific [place] 1.026 (1.003-1.030) 04/27/20 Unknown Urine Protein <15 mg/dl mg/dL (Negative) 04/27/20 Unknown Urine Glucose (UA) Neg mg/dL (Negative) 04/27/20 Unknown Urine Ketones Neg mg/dL (Negative) 04/27/20 Unknown Urine Blood Sm (Negative) 04/27/20 Unknown Urine Nitrite Neg (Negative) 04/27/20 Unknown Urine Bilirubin Neg (Negative) 04/27/20 Unknown Urine Urobilinogen 2.0 mg/dL (<2.0) 04/27/20 Unknown Ur Leukocyte Esterase Neg (Negative) 04/27/20 Unknown Urine WBC (Auto) 1.0 /HPF (0.0-6.0) 04/27/20 Unknown Urine RBC (Auto) 3.0 /HPF (0.0-6.0) 04/27/20 Unknown Urine Mucus Few /HPF 04/27/20 Unknown Last Vital Signs Temp 98.4 F 04/27/20 23:35 Pulse 84 04/27/20 23:35 Resp 20 04/27/20 23:35 BP 152/71 04/27/20 23:35 Pulse Ox 97 04/27/20 23:35 Physical Examination - Constitutional Vitals: Vital Signs Temp Pulse Resp BP Pulse Ox 98.4 F 84 20 152/71 97 04/27/20 23:35 04/27/20 23:35 04/27/20 23:35 04/27/20 23:35 04/27/20 23:35 Temperature -Last 24 Hours Temperature 98.4 F Mental Status Exam - Vital signs Last Vital Signs Temp 98.4 F 04/27/20 23:35 Pulse 84 04/27/20 23:35 Resp 20 04/27/20 23:35 BP 152/71 04/27/20 23:35 Pulse Ox 97 04/27/20 23:35 Physician Certification - Certification Statement Physician Certification Statement: This is an acknowledgement statement that SEBASTIÁN CORDOVA is a 50 year old M who requires inpatient psychiatric admission for treatment which could reasonably be expected to improve the patient's condition for Estimated period of time patient will need to remain in the hospital: [ ] Plan for post-hospital care: [ ]
[2020-04-28] MEDS ORDERED: IBUPROFEN 800 MG TAB PO PRN (09:23)
[2020-04-28] MEDS ORDERED: NON-FORMULARY EACH (Gabapentin 300 MG) PO SCH (10:00)
[2020-04-28] MEDS ORDERED: NON-FORMULARY EACH (Flomax 0.4 MG) PO SCH (10:00)
[2020-04-28] MEDS ORDERED: DEPAKOTE 125 MG PO SCH (10:00)
[2020-04-28] MEDS ORDERED: RISPERIDONE 1 MG PO SCH (10:00)
[2020-04-28] MEDS: risperiDONE 1 MG TAB PO SCH ×3 (11:40→21:07)
[2020-04-28] MEDS: DIVALPROEX DR 125 MG TAB PO SCH ×2 (11:40→21:06)
[2020-04-28] MEDS: amLODIPine 5 MG TAB PO SCH (11:40)
[2020-04-28] MEDS: GABAPENTIN 300 MG CAP PO SCH (11:41)
[2020-04-28] MEDS: TAMSULOSIN 0.4 MG CAP PO SCH (11:51)
[2020-04-28 12:14] LABS: Chol/HDL Ratio 3.16 %
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
--- NOTE | 2020-04-28 18:26 | Consultation ---
History of Present Illness - Reason for Consult Consult date: 04/28/20 Medical Management Requesting physician: [facility]CO TAN - History of Present Illness 49 YO Male with HTN, Migraine [place], Depression, Schizophrenia admitted to [facility] for Psychiatric stabilization. Consult placed by Dr. Tan for medical management. Patient seen and evaluated in his room. Patient resting comfortably in bed. Patient denies any a.m. complaints. Patient denies fever, chills, chest pain, productive cough, skin rash, recent ill contacts, or known exposure to COVID-19. No reported nursing events. Patient cooperative with exam and interview. Past History Past Medical History: hypertension, migraines, other (See HPI) Past Surgical History: hernia repair, Other (Eye surgery, elbow surgery,) Social history: . denies: smoking, alcohol abuse, prescription drug abuse Family history: hypertension Medications and Allergies Allergies Allergy/AdvReac Type Severity Reaction Status Date / Time No Known Allergies Allergy Verified 03/01/17 16:47 Home Medications Medication Instructions Recorded Confirmed Last Taken Type Cyclobenzaprine [Flexeril 10 MG 10 mg PO QHS PRN #10 tablet 09/06/18 04/28/20 Unknown Rx TAB] Menthol/Camphor [[place] 1 applicatio TP QID PRN #1 tube 05/27/19 04/28/20 Unknown Rx Ointment] Flomax 0.4 mg PO QDAY 11/22/19 04/28/20 Unknown History Gabapentin 300 mg PO QDAY 11/22/19 04/28/20 Unknown History traZODone 150 mg PO HS 11/22/19 04/28/20 Unknown History amLODIPine 5 mg PO DAILY #30 tab 02/29/20 04/28/20 Unknown Rx Mupirocin [Bactroban 2% OINT] 1 applic TP TID 7 Days #1 tube 03/16/20 04/28/20 Unknown Rx Ibuprofen 800 mg PO TID PRN 04/26/20 04/28/[address] 125 mg PO BID 04/28/20 04/28/20 Unknown History Sulfamethoxazole/Trimethoprim 1 tab PO BID 04/28/20 04/28/20 Unknown History [Bactrim DS TAB] risperiDONE 1 mg PO BID 04/28/20 04/28/20 Unknown History Active Meds: Active Medications Amlodipine Besylate (Amlodipine) 5 mg PO DAILY [facility] Last Admin: 04/28/20 11:40 Dose: Not Given Documented by: Cyclobenzaprine HCl (Flexeril) 10 mg PO QHS PRN PRN Reason: Muscle Spasm Divalproex Sodium (Depakote Dr) 125 mg PO BID [facility] Last Admin: 04/28/20 11:40 Dose: 125 mg Documented by: Gabapentin (Gabapentin) 300 mg PO DAILY [facility] Last Admin: 04/28/20 11:41 Dose: 300 mg Documented by: Ibuprofen (Ibuprofen) 800 mg PO TID PRN PRN Reason: Pain , Severe (7-10) Risperidone (Risperdal) 1 mg PO BID [facility] Last Admin: 04/28/20 11:59 Dose: Not Given Documented by: Tamsulosin HCl (Flomax) 0.4 mg PO QDAY [facility] Last Admin: 04/28/20 11:51 Dose: 0.4 mg Documented by: Trazodone HCl (Desyrel) 150 mg PO QHS [facility] Review of Systems Constitutional: no weight loss, no weight gain, no fever, no chills Ears, nose, mouth and throat: no ear pain, no ear discharge, no tinnitis, no decreased hearing Cardiovascular: no chest pain, no orthopnea, no rapid/irregular heart beat, no syncope Respiratory: no cough, no cough with sputum, no hemoptysis, no shortness of breath Gastrointestinal: no abdominal pain, no nausea, no diarrhea Genitourinary Male: no hematuria, no flank pain, no urinary hesitancy, no incontinence Rectal: no pain, no incontinence Musculoskeletal: no neck pain, no shooting arm pain, no arm numbness/tingling, no low back pain Integumentary: no rash, no pruritis, no wounds, no jaundice, no blisters Neurological: no weakness Psychiatric: no anxiety, no change in sleep habits, no hypersomnia, no change in appetite Endocrine: no cold intolerance, no heat intolerance, no excessive thirst, no polydipsia, no polyuria, no palpatations, no recent glucocorticoid use, no fatigue Hematologic/Lymphatic: no easy bruising, no easy bleeding, no lymphadenopathy Allergic/Immunologic: no allergic rhinitis, no persistent infections, no anaphylaxis Exam - Constitutional Vitals: Temp Pulse Resp BP Pulse Ox 98.4 F 84 20 152/71 97 04/27/20 23:35 04/27/20 23:35 04/27/20 23:35 04/27/20 23:35 04/27/20 23:35 General appearance: Present: no acute distress, well-nourished - EENT Eyes: Present: PERRL ENT: hearing intact, clear oral mucosa - Neck Neck: Present: supple, normal ROM - Respiratory Respiratory effort: normal Respiratory: bilateral: CTA - Cardiovascular Heart Sounds: Present: S1 & S2. Absent: rub, click - Extremities Extremities: pulses symmetrical, No edema Peripheral Pulses: within normal limits - Abdominal General gastrointestinal: Present: soft, non-tender, non-distended, normal bowel sounds Male genitourinary: Present: normal - Integumentary Integumentary: Present: clear, warm, dry - Musculoskeletal Musculoskeletal: gait normal, strength equal bilaterally - Psychiatric Psychiatric: cooperative - Neurologic Neurologic: CNII-XII intact, moves all extremities Results - Labs Labs: Abnormal lab results 04/28/20 Range/Units 10:22 Hemoglobin A1c 6.2 H (4-6) % Assessment and Plan - Patient Problems (1) Migraine Current Visit: Yes Status: Acute Plan to address problem: Continue supportive care, no headache at this time. (2) HTN (hypertension) Current Visit: No Status: Acute Qualifiers: Hypertension type: essential hypertension Qualified Code(s): I10 - Essential (primary) hypertension Plan to address problem: Monitor blood pressure every shift, continue medical management. (3) Schizophrenia Current Visit: No Status: Acute Plan to address problem: Further care as per primary team,
[2020-04-28] MEDS: traZODone 50 MG TAB PO SCH (21:06)
[2020-04-28] MEDS ORDERED: TRAZODONE 150 MG PO SCH (22:00)
[2020-04-28] MEDS ORDERED: CYCLOBENZAPRINE 10 MG TAB PO PRN (22:00)
--- NOTE | 2020-04-29 08:00 | Progress Note ---
Subjective Date of service: 04/29/20 Principal diagnosis: Schizoaffective Disorder Subjective Comment: During my interview with the patient he is in the dayroom, talking loudly to himself. He is a/o x 3. When asking the patient who was he talking too, he states, "I'm hearing everything this morning." He says, "they keep telling me I'm wasting my time." He says "they said just do it." The patient verbalizes feeling "suicidal." The patient describes his mood as "not too good." He says "this got me messed up." Reason for continued acute inpatient treatment: The patient continues to hallucinate and express suicidal thoughts. REVIEW OF SYSTEMS Constitutional: Negative for weight loss ENT: Negative for stridor Respiratory: Negative for cough or hemoptysis All other systems reviewed and are negative MENTAL STATUS EXAMINATION General Appearance: Dressed appropriately. Behavior: Cooperative Mood: "not good" Affect: Congruent with stated mood Speech: Normal tone, and pace Thought Process: Goal directed Suicidal Ideation: Yes Homicidal Ideation: Denies Hallucinations: Auditory Delusions: Paranoid Insight and Judgment: Limited Memory/Cognition: Limited ASSESSMENT Schizoaffective Disorder, Bypolar Type Cocaine Use Disorder Noncompliance with medical regimen and other treatments Treatment Plan Patient admitted for inpatient psychiatric evaluation, medication adjustment and close monitoring The patient's behavior, mood, sleep and appetite will be closely monitored. Patient enrolled in individual and group therapeutic sessions and encouraged to attend. Patient provided with a safe and structured environment. Patient's physical health needs will be addressed by the Hospitalist. Hospitalist Consulted Labs including CBC, CMP, Lipid profile and Hemoglobin A1C levels ordered for baseline reference Increased Risperidone 2mg po daily, 1mg qhs Increased Depakote DR 250mg po BID Social Assessment will be completed and the Business Analytics Intern will work with patient and family to ensure a suitable and safe disposition Medication adjustment will be made as clinically indicated Usual Wellness Yazidi/Preservation: - Start Trazodone 50 mg po QHS & 50 mg po QHS PRN between 10 PM & 2 AM for insomnia - Start Melatonin 5 mg po QHS to promote circadian rhythm - Start [place]-3 for brain health, reduce impulsivity, and as adjunctive treatment for mood disorder, continue upon discharge given overall benefits. - Start B1 prophylaxis with 200 mg po for 5 days Estimated days: 3 Post hospital care: primary care provider, psychiatric provider This certifies that Sebastián Cordova is a 50y/o male patient who is expected to improved for the condition of Schizoaffective Disorder, with the symptoms of psychosis, negative thoughts and SI/HI. ELOS (4 days) Outpatient treatment upon discharge Medications and Allergies Allergies Allergy/AdvReac Type Severity Reaction Status Date / Time No Known Allergies Allergy Verified 03/01/17 16:47 Home Medications Medication Instructions Recorded Confirmed Last Taken Type Cyclobenzaprine [Flexeril 10 MG 10 mg PO QHS PRN #10 tablet 09/06/18 04/28/20 Unknown Rx TAB] Menthol/Camphor [[place] 1 applicatio TP QID PRN #1 tube 05/27/19 04/28/20 Unknown Rx Ointment] Flomax 0.4 mg PO QDAY 11/22/19 04/28/20 Unknown History Gabapentin 300 mg PO QDAY 11/22/19 04/28/20 Unknown History traZODone 150 mg PO HS 11/22/19 04/28/20 Unknown History amLODIPine 5 mg PO DAILY #30 tab 02/29/20 04/28/20 Unknown Rx Mupirocin [Bactroban 2% OINT] 1 applic TP TID 7 Days #1 tube 03/16/20 04/28/20 Unknown Rx Ibuprofen 800 mg PO TID PRN 04/26/20 04/28/[address] 125 mg PO BID 04/28/20 04/28/20 Unknown History Sulfamethoxazole/Trimethoprim 1 tab PO BID 04/28/20 04/28/20 Unknown History [Bactrim DS TAB] risperiDONE 1 mg PO BID 04/28/20 04/28/20 Unknown History Active Meds: Active Medications Amlodipine Besylate (Amlodipine) 5 mg PO DAILY [facility] Last Admin: 04/28/20 11:40 Dose: Not Given Documented by: Cyclobenzaprine HCl (Flexeril) 10 mg PO QHS PRN PRN Reason: Muscle Spasm Divalproex Sodium (Depakote Dr) 125 mg PO BID [facility] Last Admin: 04/28/20 21:06 Dose: 125 mg Documented by: Gabapentin (Gabapentin) 300 mg PO DAILY [facility] Last Admin: 04/28/20 11:41 Dose: 300 mg Documented by: Ibuprofen (Ibuprofen) 800 mg PO TID PRN PRN Reason: Pain , Severe (7-10) Last Admin: 04/29/20 02:05 Dose: 800 mg Documented by: Risperidone (Risperdal) 1 mg PO BID [facility] Last Admin: 04/28/20 21:07 Dose: Not Given Documented by: Tamsulosin HCl (Flomax) 0.4 mg PO QDAY [facility] Last Admin: 04/28/20 11:51 Dose: 0.4 mg Documented by: Trazodone HCl (Desyrel) 150 mg PO QHS [facility] Last Admin: 04/28/20 21:06 Dose: 150 mg Documented by: Results - Results Labs/Vitals: Laboratory Last Values POC Glucose 98 mg/dL (70-105) 04/27/20 23:53 Hemoglobin A1c 6.2 % (4-6) H 04/28/20 10:22 Triglycerides 87 mg/dL (2-149) 04/28/20 10:22 Cholesterol 158 mg/dL (50-199) 04/28/20 10:22 LDL Cholesterol Direct 103 mg/dL (50-130) 04/28/20 10:22 HDL Cholesterol 50 mg/dL (40-59) 04/28/20 10:22 Cholesterol/HDL Ratio 3.16 % 04/28/20 10:22 TSH 1.130 mlU/mL (0.270-4.200) 04/28/20 10:22 Urine Color Yellow (Yellow) 04/27/20 Unknown Urine Turbidity Clear (Clear) 04/27/20 Unknown Urine pH 5.0 (5.0-7.0) 04/27/20 Unknown Ur Specific [place] 1.026 (1.003-1.030) 04/27/20 Unknown Urine Protein <15 mg/dl mg/dL (Negative) 04/27/20 Unknown Urine Glucose (UA) Neg mg/dL (Negative) 04/27/20 Unknown Urine Ketones Neg mg/dL (Negative) 04/27/20 Unknown Urine Blood Sm (Negative) 04/27/20 Unknown Urine Nitrite Neg (Negative) 04/27/20 Unknown Urine Bilirubin Neg (Negative) 04/27/20 Unknown Urine Urobilinogen 2.0 mg/dL (<2.0) 04/27/20 Unknown Ur Leukocyte Esterase Neg (Negative) 04/27/20 Unknown Urine WBC (Auto) 1.0 /HPF (0.0-6.0) 04/27/20 Unknown Urine RBC (Auto) 3.0 /HPF (0.0-6.0) 04/27/20 Unknown Urine Mucus Few /HPF 04/27/20 Unknown Last Vital Signs Temp 98.8 F 04/28/20 22:00 Pulse 79 04/28/20 22:00 Resp 18 04/29/20 02:05 BP 141/72 04/28/20 22:00 Pulse Ox 95 04/28/20 22:00
[2020-04-29] MEDS: GABAPENTIN 300 MG CAP PO SCH (10:07)
[2020-04-29] MEDS: TAMSULOSIN 0.4 MG CAP PO SCH (10:07)
[2020-04-29] MEDS: DIVALPROEX DR 250 MG TAB PO SCH ×2 (10:08→22:46)
[2020-04-29] MEDS: amLODIPine 5 MG TAB PO SCH (10:08)
[2020-04-29] MEDS: risperiDONE 1 MG TAB PO SCH (10:09)
--- NOTE | 2020-04-29 20:48 | Progress Note ---
Assessment and Plan - Patient Problems (1) Migraine Current Visit: Yes Status: Acute Plan to address problem: Continue supportive care, no headache at this time. (2) HTN (hypertension) Current Visit: No Status: Acute Qualifiers: Hypertension type: essential hypertension Qualified Code(s): I10 - Essential (primary) hypertension Plan to address problem: Monitor blood pressure every shift, continue medical management. (3) Schizophrenia Current Visit: No Status: Acute Plan to address problem: Further care as per primary team, History Interval history: 49 YO Male with HTN, Migraine [place], Depression, Schizophrenia admitted to [facility] for Psychiatric stabilization. Patient seen and evaluated in the recreation room. Patient resting comfortably and denies any a.m. complaints. No reported nursing events. Patient cooperative with exam and interview. Hospitalist Physical - Constitutional Vitals: Temp Pulse Resp BP Pulse Ox 98.4 F 75 18 138/70 96 04/29/20 10:00 04/29/20 10:08 04/29/20 10:00 04/29/20 10:08 04/29/20 10:00 General appearance: Present: no acute distress, well-nourished - EENT Eyes: Present: PERRL ENT: hearing intact - Neck Neck: Present: supple - Respiratory Respiratory effort: labored Respiratory: bilateral: CTA - Cardiovascular Rhythm: regular Heart Sounds: Present: S1 & S2 - Extremities Extremities: no ischemia Peripheral Pulses: within normal limits - Abdominal General gastrointestinal: soft, non-tender, non-distended - Integumentary Integumentary: Present: clear, dry - Psychiatric Psychiatric: cooperative - Neurologic Neurologic: CNII-XII intact Results - Labs Labs: Laboratory Last Values POC Glucose 98 mg/dL (70-105) 04/27/20 23:53 Hemoglobin A1c 6.2 % (4-6) H 04/28/20 10:22 Triglycerides 87 mg/dL (2-149) 04/28/20 10:22 Cholesterol 158 mg/dL (50-199) 04/28/20 10:22 LDL Cholesterol Direct 103 mg/dL (50-130) 04/28/20 10:22 HDL Cholesterol 50 mg/dL (40-59) 04/28/20 10:22 Cholesterol/HDL Ratio 3.16 % 04/28/20 10:22 TSH 1.130 mlU/mL (0.270-4.200) 04/28/20 10:22 Urine Color Yellow (Yellow) 04/27/20 Unknown Urine Turbidity Clear (Clear) 04/27/20 Unknown Urine pH 5.0 (5.0-7.0) 04/27/20 Unknown Ur Specific [place] 1.026 (1.003-1.030) 04/27/20 Unknown Urine Protein <15 mg/dl mg/dL (Negative) 04/27/20 Unknown Urine Glucose (UA) Neg mg/dL (Negative) 04/27/20 Unknown Urine Ketones Neg mg/dL (Negative) 04/27/20 Unknown Urine Blood Sm (Negative) 04/27/20 Unknown Urine Nitrite Neg (Negative) 04/27/20 Unknown Urine Bilirubin Neg (Negative) 04/27/20 Unknown Urine Urobilinogen 2.0 mg/dL (<2.0) 04/27/20 Unknown Ur Leukocyte Esterase Neg (Negative) 04/27/20 Unknown Urine WBC (Auto) 1.0 /HPF (0.0-6.0) 04/27/20 Unknown Urine RBC (Auto) 3.0 /HPF (0.0-6.0) 04/27/20 Unknown Urine Mucus Few /HPF 04/27/20 Unknown Alexis/IV: Voiding Method Toilet Active Medications - Current Medications Current Medications: Generic Name Dose Route Start Last Admin Trade Name Freq PRN Reason Stop Dose Admin Amlodipine Besylate 5 mg 04/28/20 10:00 04/29/20 10:08 Amlodipine PO 5 mg DAILY STEVEN Administration Cyclobenzaprine HCl 10 mg 04/28/20 22:00 Flexeril PO QHS PRN Muscle Spasm Divalproex Sodium 250 mg 04/29/20 10:00 04/29/20 10:[address] PO 250 mg BID STEVEN Administration Gabapentin 300 mg 04/28/20 10:00 04/29/20 10:07 Gabapentin PO 300 mg DAILY STEVEN Administration Ibuprofen 800 mg 04/28/20 09:23 04/29/20 02:05 Ibuprofen PO 800 mg TID PRN Administration Pain , Severe (7-10) Risperidone 1 mg 04/29/20 22:00 Risperdal PO QHS STEVEN Risperidone 2 mg 04/29/20 10:00 04/29/20 10:09 Risperdal PO Not Given DAILY STEVEN Tamsulosin HCl 0.4 mg 04/28/20 10:00 04/29/20 10:07 Flomax PO 0.4 mg QDAY STEVEN Administration Trazodone HCl 150 mg 04/28/20 22:00 04/28/20 21:06 Desyrel PO 150 mg QHS STEVEN Administration
[2020-04-29] MEDS ORDERED: risperiDONE 1 MG TAB PO SCH (22:00)
[2020-04-29] MEDS: traZODone 50 MG TAB PO SCH (22:46)
[2020-04-30] MEDS: amLODIPine 5 MG TAB PO SCH (10:02)
[2020-04-30] MEDS: GABAPENTIN 300 MG CAP PO SCH (10:02)
[2020-04-30] MEDS: DIVALPROEX DR 250 MG TAB PO SCH ×3 (10:02→20:32)
[2020-04-30] MEDS: risperiDONE 1 MG TAB PO SCH ×2 (10:03→21:19)
[2020-04-30] MEDS: TAMSULOSIN 0.4 MG CAP PO SCH (10:03)
--- NOTE | 2020-04-30 11:25 | Progress Note ---
Subjective Date of service: 04/30/20 Principal diagnosis: Schizoaffective Disorder Subjective Comment: During my interview with the patient he is in the dayroom, he is more calm today. He is smiling. He says he's still hearing the voices. He says "they are saying I should just go ahead and kill myself." He says, "the voices make me suicidal." He says "the depakote is helping me, but the risperidone makes me too drowsy." Reason for continued acute inpatient treatment: The patient continues to hallucinate and express suicidal thoughts. REVIEW OF SYSTEMS Constitutional: Negative for weight loss ENT: Negative for stridor Respiratory: Negative for cough or hemoptysis All other systems reviewed and are negative MENTAL STATUS EXAMINATION General Appearance: Dressed appropriately. Behavior: Cooperative Mood: "okay" Affect: Congruent with stated mood Speech: Normal tone, and pace Thought Process: Goal directed Suicidal Ideation: Yes Homicidal Ideation: Denies Hallucinations: Auditory Delusions: None elicited Insight and Judgment: Limited Memory/Cognition: Limited ASSESSMENT Schizoaffective Disorder, Bypolar Type Cocaine Use Disorder Noncompliance with medical regimen and other treatments Treatment Plan Patient admitted for inpatient psychiatric evaluation, medication adjustment and close monitoring The patient's behavior, mood, sleep and appetite will be closely monitored. Patient enrolled in individual and group therapeutic sessions and encouraged to attend. Patient provided with a safe and structured environment. Patient's physical health needs will be addressed by the Hospitalist. Hospitalist Consulted Labs including CBC, CMP, Lipid profile and Hemoglobin A1C levels ordered for baseline reference Decrease Risperidone 1mg po BID Increased Depakote DR 250mg po TID Social Assessment will be completed and the Farm Reporter will work with patient and family to ensure a suitable and safe disposition Medication adjustment will be made as clinically indicated Usual Wellness Catholic/Preservation: - Start Trazodone 50 mg po QHS & 50 mg po QHS PRN between 10 PM & 2 AM for insomnia - Start Melatonin 5 mg po QHS to promote circadian rhythm - Start [place]-3 for brain health, reduce impulsivity, and as adjunctive treatment for mood disorder, continue upon discharge given overall benefits. - Start B1 prophylaxis with 200 mg po for 5 days Estimated days: 3 Post hospital care: primary care provider, psychiatric provider This certifies that Sebastián Cordova is a 50y/o male patient who is expected to improved for the condition of Schizoaffective Disorder, with the symptoms of psychosis, negative thoughts and SI/HI. ELOS (4 days) Outpatient treatment upon discharge Medications and Allergies Allergies Allergy/AdvReac Type Severity Reaction Status Date / Time No Known Allergies Allergy Verified 03/01/17 16:47 Home Medications Medication Instructions Recorded Confirmed Last Taken Type Cyclobenzaprine [Flexeril 10 MG 10 mg PO QHS PRN #10 tablet 09/06/18 04/28/20 Unknown Rx TAB] Menthol/Camphor [[place] 1 applicatio TP QID PRN #1 tube 05/27/19 04/28/20 Unknown Rx Ointment] Flomax 0.4 mg PO QDAY 11/22/19 04/28/20 Unknown History Gabapentin 300 mg PO QDAY 11/22/19 04/28/20 Unknown History traZODone 150 mg PO HS 11/22/19 04/28/20 Unknown History amLODIPine 5 mg PO DAILY #30 tab 02/29/20 04/28/20 Unknown Rx Mupirocin [Bactroban 2% OINT] 1 applic TP TID 7 Days #1 tube 03/16/20 04/28/20 Unknown Rx Ibuprofen 800 mg PO TID PRN 04/26/20 04/28/[address] 125 mg PO BID 04/28/20 04/28/20 Unknown History Sulfamethoxazole/Trimethoprim 1 tab PO BID 04/28/20 04/28/20 Unknown History [Bactrim DS TAB] risperiDONE 1 mg PO BID 04/28/20 04/28/20 Unknown History Active Meds: Active Medications Amlodipine Besylate (Amlodipine) 5 mg PO DAILY [facility] Last Admin: 04/30/20 10:02 Dose: 5 mg Documented by: Cyclobenzaprine HCl (Flexeril) 10 mg PO QHS PRN PRN Reason: Muscle Spasm Divalproex Sodium (Depakote Dr) 250 mg PO BID [facility] Last Admin: 04/30/20 10:02 Dose: 250 mg Documented by: Gabapentin (Gabapentin) 300 mg PO DAILY [facility] Last Admin: 04/30/20 10:02 Dose: 300 mg Documented by: Ibuprofen (Ibuprofen) 800 mg PO TID PRN PRN Reason: Pain , Severe (7-10) Last Admin: 04/29/20 02:05 Dose: 800 mg Documented by: Risperidone (Risperdal) 1 mg PO QHS [facility] Last Admin: 04/29/20 22:46 Dose: Not Given Documented by: Risperidone (Risperdal) 2 mg PO DAILY [facility] Last Admin: 04/30/20 10:03 Dose: Not Given Documented by: Tamsulosin HCl (Flomax) 0.4 mg PO QDAY [facility] Last Admin: 04/30/20 10:03 Dose: 0.4 mg Documented by: Trazodone HCl (Desyrel) 150 mg PO QHS [facility] Last Admin: 04/29/20 22:46 Dose: 150 mg Documented by: Results - Results Labs/Vitals: Laboratory Last Values POC Glucose 98 mg/dL (70-105) 04/27/20 23:53 Hemoglobin A1c 6.2 % (4-6) H 04/28/20 10:22 Triglycerides 87 mg/dL (2-149) 04/28/20 10:22 Cholesterol 158 mg/dL (50-199) 04/28/20 10:22 LDL Cholesterol Direct 103 mg/dL (50-130) 04/28/20 10:22 HDL Cholesterol 50 mg/dL (40-59) 04/28/20 10:22 Cholesterol/HDL Ratio 3.16 % 04/28/20 10:22 TSH 1.130 mlU/mL (0.270-4.200) 04/28/20 10:22 Urine Color Yellow (Yellow) 04/27/20 Unknown Urine Turbidity Clear (Clear) 04/27/20 Unknown Urine pH 5.0 (5.0-7.0) 04/27/20 Unknown Ur Specific [place] 1.026 (1.003-1.030) 04/27/20 Unknown Urine Protein <15 mg/dl mg/dL (Negative) 04/27/20 Unknown Urine Glucose (UA) Neg mg/dL (Negative) 04/27/20 Unknown Urine Ketones Neg mg/dL (Negative) 04/27/20 Unknown Urine Blood Sm (Negative) 04/27/20 Unknown Urine Nitrite Neg (Negative) 04/27/20 Unknown Urine Bilirubin Neg (Negative) 04/27/20 Unknown Urine Urobilinogen 2.0 mg/dL (<2.0) 04/27/20 Unknown Ur Leukocyte Esterase Neg (Negative) 04/27/20 Unknown Urine WBC (Auto) 1.0 /HPF (0.0-6.0) 04/27/20 Unknown Urine RBC (Auto) 3.0 /HPF (0.0-6.0) 04/27/20 Unknown Urine Mucus Few /HPF 04/27/20 Unknown Last Vital Signs Temp 98.4 F 04/30/20 08:31 Pulse 73 04/30/20 08:31 Resp 18 04/30/20 08:31 BP 133/95 04/30/20 08:31 Pulse Ox 95 04/30/20 08:31
[2020-04-30] MEDS ORDERED: DIVALPROEX DR 500 MG TAB PO SCH ×2 (14:00→22:00)
[2020-04-30] MEDS: traZODone 50 MG TAB PO SCH (21:18)
[2020-05-01 09:08] VITALS: BP 140/97
[2020-05-01] MEDS: TAMSULOSIN 0.4 MG CAP PO SCH (09:26)
[2020-05-01] MEDS: DIVALPROEX DR 250 MG TAB PO SCH (09:26)
[2020-05-01] MEDS: GABAPENTIN 300 MG CAP PO SCH (09:26)
[2020-05-01] MEDS: amLODIPine 5 MG TAB PO SCH (09:26)
[2020-05-01] MEDS: risperiDONE 1 MG TAB PO SCH (09:28)
--- NOTE | 2020-05-01 09:36 | Discharge Summary ---
Providers - Providers Date of Admission: 04/27/20 22:59 Date of discharge: 05/01/20 Attending physician: FCO TAN MD 04/27/20 18:42 Consult to Physician [CONS] Routine Comment: Consulting Provider: SAÚL WEBSTER Physician Instructions: Reason For Exam: manage medical conditions Primary care physician: IRENA SCHAEFFER Hospitalization Reason for admission: hallucinations, SI Admitting Diagnosis: F25.0 - SCHIZOAFFECTIVE DISORDER, BIPOLAR TYPE Condition: Stable Hospital course: The patient was provided inpatient psychiatric treatment with safe and supportive care, medication adjustment, adverse effect monitoring, medical evaluations, medical treatments, assessment and psycho-education. The patient's mood, cognition, behavior, moral support are improved and stabilized. St the time of discharge, the patient had no endangering behavior and no debilitating adverse effects. The patient agreed on potential consequences of no treatment and gave informed consent. Disposition: DC-01 TO HOME OR SELFCARE Time spent for discharge: 35 Allergies/Adverse Reactions: Allergies No Known Allergies Allergy (Verified 03/01/17 16:47) Vital Signs: Last Vital Signs Temp 98.0 F 05/01/20 08:21 Pulse 74 05/01/20 08:21 Resp 18 05/01/20 08:21 BP 140/97 05/01/20 08:21 Pulse Ox 98 05/01/20 08:21 Last Lab: Laboratory Last Values POC Glucose 98 mg/dL (70-105) 04/27/20 23:53 Hemoglobin A1c 6.2 % (4-6) H 04/28/20 10:22 Triglycerides 87 mg/dL (2-149) 04/28/20 10:22 Cholesterol 158 mg/dL (50-199) 04/28/20 10:22 LDL Cholesterol Direct 103 mg/dL (50-130) 04/28/20 10:22 HDL Cholesterol 50 mg/dL (40-59) 04/28/20 10:22 Cholesterol/HDL Ratio 3.16 % 04/28/20 10:22 TSH 1.130 mlU/mL (0.270-4.200) 04/28/20 10:22 Urine Color Yellow (Yellow) 04/27/20 Unknown Urine Turbidity Clear (Clear) 04/27/20 Unknown Urine pH 5.0 (5.0-7.0) 04/27/20 Unknown Ur Specific [place] 1.026 (1.003-1.030) 04/27/20 Unknown Urine Protein <15 mg/dl mg/dL (Negative) 04/27/20 Unknown Urine Glucose (UA) Neg mg/dL (Negative) 04/27/20 Unknown Urine Ketones Neg mg/dL (Negative) 04/27/20 Unknown Urine Blood Sm (Negative) 04/27/20 Unknown Urine Nitrite Neg (Negative) 04/27/20 Unknown Urine Bilirubin Neg (Negative) 04/27/20 Unknown Urine Urobilinogen 2.0 mg/dL (<2.0) 04/27/20 Unknown Ur Leukocyte Esterase Neg (Negative) 04/27/20 Unknown Urine WBC (Auto) 1.0 /HPF (0.0-6.0) 04/27/20 Unknown Urine RBC (Auto) 3.0 /HPF (0.0-6.0) 04/27/20 Unknown Urine Mucus Few /HPF 04/27/20 Unknown Core Measure Documentation - Palliative Care Palliative Care/ Comfort Measures: Not Applicable - Core Measures Any of the following diagnoses?: none Exam - Constitutional Vitals: Temp Pulse Resp BP Pulse Ox 98.0 F 74 18 140/97 98 05/01/20 08:21 05/01/20 08:21 05/01/20 08:21 05/01/20 08:21 05/01/20 08:21 General appearance: Present: no acute distress, well-nourished - EENT Eyes: Present: EOM intact ENT: hearing intact, clear oral mucosa - Neck Neck: Present: supple, normal ROM - Respiratory Respiratory effort: normal Plan Activity: advance as tolerated Weight Bearing Status: Weight Bear as Tolerated Care Plan Goals: Maintain good and stable mental health Plan of Treatment: The patient should be compliant with medications, not to use drugs, and not to drink alcohol. The patient understands that if suicidal ideas, homicidal ideas or any endangering feeling arise, the patient should seek assistance including, but not limited to crisis hotline, and emergency room. Follow up with: IRENA SCHAEFFER MD [Primary Care Provider] - 7 Days Prescriptions: Divalproex [Depakote Dr] 250 mg PO TID #60 tablet risperiDONE 1 mg PO BID #60 traZODone 150 mg PO HS #30
== END 2020-05-01 11:57 | disposition home or self-care (01) | DRG 885 ==
LOC: 3A 18:22 → UNDOADMIN 18:22 → 5A 22:59
PROVIDERS: ADMIT Psychiatry & Neurology Psychiatry; ATTEND Psychiatry & Neurology Psychiatry
DX: F25.0 Schizoaffective disorder, bipolar type (principal); F31.9 Bipolar disorder, unspecified; G89.29 Other chronic pain; I10 Essential (primary) hypertension; G43.909 Migraine, unspecified, not intractable, without status migrainosus; F14.10 Cocaine abuse, uncomplicated; F15.10 Other stimulant abuse, uncomplicated; Z91.19 Patient's noncompliance with other medical treatment and regimen; Z63.5 Disruption of family by separation and divorce; Z59.0 Homelessness; Z56.0 Unemployment, unspecified; Z79.899 Other long term (current) drug therapy; Z79.891 Long term (current) use of opiate analgesic; Z79.01 Long term (current) use of anticoagulants; Z82.49 Family history of ischemic heart disease and other diseases of the circulatory system
CPT/HCPCS: 36415; 80061; 81001; 82962; 83036; 84443; G0378

== ENCOUNTER 2020-05-11 23:49 | Emergency (ER) | payer MEDICARE ==
--- NOTE | 2020-05-12 03:54 | Emergency Department Report ---
Chief Complaint: Extremity Injury, Lower Stated Complaint: PAIN IN LEFT HIP AND FOOT Time Seen by Provider: 05/12/20 03:45 - HPI History of Present Illness: 50-year-old -Mexican male with a past medical history of schizophrenia, depression, BPH sciatica presents to the emergency room complaining of a 4-day history of left hip pain that radiates down his left foot and worsening. Patient is requesting a prescription for gabapentin. Patient does have a primary care provider but has not followed up with them. Patient states he has tried taking Tylenol without much relief. Patient denies any recent trauma. - Exam Vital Signs: Vital Signs 05/12/20 01:03 Temperature 98.6 F Pulse Rate 111 H Respiratory 18 Rate Blood Pressure 139/99 O2 Sat by Pulse 98 Oximetry Physical Exam: Patient is alert and oriented x3 no acute distress nontoxic in appearance Patient has full range of motion of his back lower extremities Patient has no use of accessory muscles. Patient is ambulatory without difficulty. MSE screening note: Focused history and physical exam performed. Due to findings the following was ordered: 50-year-old -Mexican male with a past medical history of schizophrenia, depression, BPH sciatica presents to the emergency room complaining of a 4-day history of left hip pain that radiates down his left foot and worsening. P atient is requesting a prescription for gabapentin. Patient does have a primary care provider but has not followed up with them. Patient states he has tried taking Tylenol without much relief. Patient denies any recent trauma. Discussed with patient he can take ibuprofen stretches and follow-up with his primary care provider. ED Disposition for MSE Disposition: Z-07 MED SCREENING EXAM-LEFT Is pt being admited?: No Does the pt Need Aspirin: No Condition: Stable Additional Instructions: Please follow-up with your primary care provider. Ibuprofen or Tylenol as needed for pain management. Referrals: PRIMARY CARE, [Primary Care Provider] - 3-5 Days
[2020-05-12 06:42] VITALS: BP 133/87
== END 2020-05-12 04:15 | disposition left against medical advice (07) ==
LOC: ED 23:49
DX: M25.552 Pain in left hip (principal); M79.672 Pain in left foot; Z53.21 Procedure and treatment not carried out due to patient leaving prior to being seen by health care provider

== ENCOUNTER 2020-07-10 14:54 | Emergency (ER) | payer MEDICARE ==
[2020-07-10 14:59] VITALS: BP 192/98
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
== END 2020-07-10 15:50 | disposition home or self-care (01) ==
LOC: ED 14:54
DX: I10 Essential (primary) hypertension (principal); G43.909 Migraine, unspecified, not intractable, without status migrainosus; F25.1 Schizoaffective disorder, depressive type; F17.200 Nicotine dependence, unspecified, uncomplicated; F12.90 Cannabis use, unspecified, uncomplicated; F14.90 Cocaine use, unspecified, uncomplicated; Z79.899 Other long term (current) drug therapy; Z98.890 Other specified postprocedural states; Z76.0 Encounter for issue of repeat prescription
CPT/HCPCS: 99281

== ENCOUNTER 2020-07-13 22:15 | Emergency (ER) | payer MEDICARE ==
[2020-07-14 03:51] VITALS: BP 155/84
[2020-07-14] MEDS ORDERED: KETOROLAC 60 MG/2 ML INJ IM ONE (04:22)
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
== END 2020-07-14 04:43 | disposition home or self-care (01) ==
LOC: ED 22:15
DX: M54.5 Low back pain (principal); G89.29 Other chronic pain; M79.605 Pain in left leg; I10 Essential (primary) hypertension; G43.909 Migraine, unspecified, not intractable, without status migrainosus; F20.9 Schizophrenia, unspecified; F32.9 Major depressive disorder, single episode, unspecified; F17.200 Nicotine dependence, unspecified, uncomplicated; Z98.890 Other specified postprocedural states; Z79.1 Long term (current) use of non-steroidal anti-inflammatories (NSAID); Z79.899 Other long term (current) drug therapy
CPT/HCPCS: 96372; 99282; J1885

== ENCOUNTER 2020-10-07 07:44 | Emergency (ER) | payer MEDICARE ==
[2020-10-07 07:57] VITALS: BP 179/102
--- NOTE | 2020-10-07 08:59 | Event Note ---
ED Screening Note Date of service: 10/07/20 Time: 08:52 ED Screening Note: 50-year-old -[place] male with a history of schizophrenia affective disorder presents to the emergency room requesting medical clearance taking go to detox at [facility]. Patient states his drug of choice has been marijuana and cocaine and alcohol. Patient states he last used 2 days ago. He currently does not work is on disability. He denies any suicidal ideation or homicidal ideation. Only pain he has is chronic pain to his left toe. This initial assessment/diagnostic orders/clinical plan/treatment(s) is/are subject to change based on patients health status, clinical progression and re- assessment by fellow clinical providers in the ED. Further treatment and workup at subsequent clinical providers discretion. Patient/guardian urged not to elope from the ED as their condition may be serious if not clinically assessed and managed. Initial orders include:
[2020-10-07 09:17] LABS: Hematocrit 51.3 % (35.5-45.6); Hemoglobin 17.3 gm/dl (11.8-15.2); Mean Corpuscular HGB Conc 34 % (32-34); Mean Corpuscular Volume 91 fl (84-94); Platelet Count 200 K/mm3 (140-440); Red Blood Count 5.66 M/mm3 (3.65-5.03); Red Cell Distribution Width 14.2 % (13.2-15.2)
[2020-10-07 09:27] LABS: Bilirubin,Urine NEG (Negative); Blood,Urine NEG (Negative); Color,Urine Yellow (Yellow); Mucus,Urine 1+ /HPF; Protein,Urine <15 mg/dL mg/dL (Negative)
[2020-10-07 09:34] LABS: Amphetamine Screen,Urine Negative; Benzodiazepines Screen,Urine Negative; Methadone Screen,Urine Negative; Opiate Screen,Urine Negative
[2020-10-07 09:36] LABS: BUN/Creatinine Ratio 8; Blood Urea Nitrogen 9 mg/dL (9-20); Calcium 9.2 mg/dL (8.4-10.2); Hemolysis Index 9
[2020-10-07 10:04] LABS: Cannabinoid Screen,Urine PRESUMPTIVE POSITIVE; Cocaine Screen,Urine PRESUMPTIVE POSITIVE
[2020-10-07 10:58] LABS: Total Cells Counted 100
[2020-10-07 10:59] LABS: Platelet Estimate Consistent w Auto; RBC Morphology Normal
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
== END 2020-10-07 11:31 | disposition home or self-care (01) ==
LOC: ED 07:44
DX: F25.1 Schizoaffective disorder, depressive type (principal); I10 Essential (primary) hypertension; G43.909 Migraine, unspecified, not intractable, without status migrainosus; F17.200 Nicotine dependence, unspecified, uncomplicated; Z00.8 Encounter for other general examination; Z79.899 Other long term (current) drug therapy; Z98.890 Other specified postprocedural states
CPT/HCPCS: 36415; 80048; 80307; 80320; 81001; 85007; 85025; 99283; G0480

== ENCOUNTER 2020-11-06 15:35 | Emergency (ER) | payer MEDICARE ==
[2020-11-06 16:01] VITALS: BP 168/110
--- NOTE | 2020-11-06 17:34 | Event Note ---
ED Screening Note Date of service: 11/06/20 Time: 17:31 ED Screening Note: 50-year-old male patient with history of BPH presents to the emergency department with complaints of testicular pain starting approximately 12 hours ago. Patient states he was "messing around with a friend" prior to the onset of his pain. He states there was no direct trauma to the affected area. Patien endorses difficulty urinating today but states that he has difficulty urinating at baseline due to his underlying prostate issues. Tachycardic in triage. General: Awake, appropriately interactive, no acute distress. Neck: Supple. Full range of motion intact. Cardiovascular: Normal peripheral perfusion. Pulmonary: No respiratory distress. Patient is speaking normally without use of accessory muscles. 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 Normal external inspection. No evidence of inguinal hernia. Tenderness to palpation throughout the scrotum without overlying warmth or erythema. There is a small, non-tender mass palpated along the superior aspect of the right testicle. No testicular asymmetry. No blood or discharge at the urethral meatus. Negative Prehn sign. No rashes or lesions. Skin: No apparent rashes or lesions. Neurological: No facial asymmetry. Speech is clear. Follows commands. Patient is alert and oriented. Musculoskeletal: Moves all four extremities spontaneously with normal range of motion. Psych: Cooperative. Appropriate mood and affect. I have greeted and performed a focused rapid initial assessment of this patient. A comprehensive ED assessment and evaluation of the patient, analysis of all test results, and completion of the medical decision-making process will be conducted by additional ED providers. This initial assessment/diagnostic orders/clinical plan/treatment(s) is/are subject to change based on patients health status, clinical progression and re-assessment. Further treatment and workup at subsequent clinical provider's discretion. Patient/guardian urged not to elope from the ED as their condition may be serious if not clinically a ssessed and managed.
--- NOTE | 2020-11-06 18:59 | Ultrasound Report ---
ULTRASOUND SCROTUM INDICATION / CLINICAL INFORMATION: testicular pain. COMPARISON: None available. FINDINGS -- RIGHT TESTIS: Size = 2.8 x 2.6 x 3.2 cm. - Appearance: No significant abnormality. - Cyst or Mass: None. - Color Doppler Flow: No significant abnormality. EPIDIDYMIS: No significant abnormality. HYDROCELE: Small VARICOCELE: None demonstrated. FINDINGS -- LEFT TESTIS: Size = 3.2 x 2.4 x 3.3 cm. - Appearance: No significant abnormality. - Cyst or Mass: None. - Color Doppler Flow: No significant abnormality. EPIDIDYMIS: No significant abnormality. HYDROCELE: Small VARICOCELE: None demonstrated. ADDITIONAL FINDINGS: None. IMPRESSION: 1. Small bilateral hydroceles. 2. No significant testicular or epididymal abnormality Signer Name: Ko Greco MD Signed: 11/06/2020 6:54 PM Workstation Name: [id number]
[2020-11-06] MEDS ORDERED: IBUPROFEN 600 MG TAB PO ONE (22:28)
[2020-11-06] MEDS ORDERED: ACETAMINOPHEN 500 MG TAB PO ONE (22:28)
[2020-11-06] MEDS ORDERED: GABAPENTIN 300 MG CAP PO ONE (22:28)
[2020-11-06 22:47] LABS: Bacteria,Urine 1+ /HPF (Negative); Bilirubin,Urine NEG (Negative); Blood,Urine SM (Negative); Color,Urine Yellow (Yellow); Mucus,Urine FEW /HPF; Protein,Urine <15 mg/dL mg/dL (Negative)
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
== END 2020-11-06 23:50 | disposition home or self-care (01) ==
LOC: ED 15:35
DX: M54.42 Lumbago with sciatica, left side (principal); M62.830 Muscle spasm of back; I10 Essential (primary) hypertension; G43.909 Migraine, unspecified, not intractable, without status migrainosus; F20.9 Schizophrenia, unspecified; F17.200 Nicotine dependence, unspecified, uncomplicated; Z98.890 Other specified postprocedural states; Z79.899 Other long term (current) drug therapy
CPT/HCPCS: 81001; 93975

== ENCOUNTER 2021-01-10 20:56 | Emergency (ER) | payer MEDICARE ==
[2021-01-10 21:53] VITALS: BP 139/115
[2021-01-10 22:12] LABS: Basophils # (Auto) 0.1 K/mm3 (0.0-0.1); Eosinophils # (Auto) 0.4 K/mm3 (0.0-0.4); Eosinophils % (Auto) 5.7 % (0.0-4.3); Hematocrit 50.2 % (35.5-45.6); Hemoglobin 16.7 gm/dl (11.8-15.2); Lymphocytes # (Auto) 3.1 K/mm3 (1.2-5.4); Lymphocytes % (Auto) 47.1 % (13.4-35.0); Mean Corpuscular HGB Conc 33 % (32-34); Mean Corpuscular Volume 91 fl (84-94); Monocytes # (Auto) 0.6 K/mm3 (0.0-0.8); Platelet Count 265 K/mm3 (140-440); Red Blood Count 5.51 M/mm3 (3.65-5.03); Red Cell Distribution Width 13.2 % (13.2-15.2)
[2021-01-10 22:32] LABS: BUN/Creatinine Ratio 9; Blood Urea Nitrogen 9 mg/dL (9-20); Calcium 8.8 mg/dL (8.4-10.2); Hemolysis Index 12
[2021-01-10 22:34] LABS: Amphetamine Screen,Urine PRESUMPTIVE POSITIVE; Benzodiazepines Screen,Urine PRESUMPTIVE NEGATIVE; Cannabinoid Screen,Urine PRESUMPTIVE POSITIVE; Cocaine Screen,Urine PRESUMPTIVE POSITIVE; Methadone Screen,Urine PRESUMPTIVE NEGATIVE; Opiate Screen,Urine PRESUMPTIVE NEGATIVE
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
[2021-01-10 22:56] LABS: Bacteria,Urine 1+ /HPF (Negative); Bilirubin,Urine NEG (Negative); Blood,Urine SM (Negative); Color,Urine Yellow (Yellow); Mucus,Urine 1+ /HPF; Protein,Urine <15 mg/dL mg/dL (Negative)
[2021-01-11] MEDS: SULFAMETHOXAZOLE/TRIMETHOPRIM 800/160MG DS TAB PO SCH ×2 (03:30→10:12)
--- NOTE | 2021-01-11 12:07 | Consultation ---
History of Present Illness - Reason for Consult Consult date: 01/11/21 Reason for consult: suicidal thoughts - History of Present Psychiatric Illness Sebastián Cordova is a 50 year old male with a history of Schizoaffective disorder who presents to the ED with suicidal thoughts. In my interview with the patient,he reports being non compliant with psychotropic medications " I last took medication about a year." The patient reports that medications does not work for him " it makes me weaker and vulnerable." The patient is focused on discharge " I just want to be discharged." He denies any current suicidal ideation and denies hallucinations. PAST PSYCHIATRIC HISTORY Diagnoses: Schizoaffective Disorder Suicide attempts or Self-harm behavior: Denies Prior psychiatric hospitalizations: Yes Substance Abuse history: Denies Previous psychiatric medications tried: Zyprexa Outpatient treatment: yes SOCIAL HISTORY Marital Status: Single Living Arrangements: Homeless Employment Status: unemployed Access to guns/weapons: Denied Education:12th grade History of Abuse: Denied Legal History: None reported REVIEW OF SYSTEMS Constitutional: Negative for weight loss ENT: Negative for stridor Respiratory: Negative for cough or hemoptysis All other systems reviewed and are negative MENTAL STATUS EXAMINATION General Appearance and Behavior: Age appropriate, dressed appropriately, calm and cooperative Cooperation: Participating Psychomotor Behavior: psychomotor normal Mood: calm Affect and affective range: Congruent with stated mood Thought Process: goal directed Thought Content: with normal limits Speech: Normal volume, Regular rate and rhythm, Intellectual Functioning: Average Suicidal Ideation: Denied Homicidal Ideation: Denied Hallucinations: Denied Delusions: None elicited Impulse Control: Unimpaired Insight and Judgment: Limited insight and judgment, Memory: Normal Attention: Undivided Orientation: Alert, oriented Assessment and Plan (1)Schizoaffective Disorder Treatment plan Risks, benefits and alternatives of medications discussed with the patient, questions answered and consent obtained from patient. PSYCHOTHERAPY: Supportive psychotherapy provided MEDICAL: Per primary team DELIRIUM PRECAUTIONS: Please re-orient patient frequently, keep lights on during the day, and minimize benzodiazepines and opiates as these medications could worsen patient's confusion. 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 Patient was informed that if suicidal/homicidal ideation/withdrawal symptoms arise, He should immediately seek for emergent assistance including but not limited to crisis hot line and emergency room. The manager skilled to give the patient resources for a correction, transportation pass, CBT, med management and alcohol rehab programs The patient to follow up with outpatient psych in 7 to 14 days upon discharge The patient to abstain from alcohol use FOLLOW-UP: Will sign off Thank you for the consult. Please contact with any questions and/or concerns. Case staffed with Dr. Quintero Medications and Allergies Allergies Allergy/AdvReac Type Severity Reaction Status Date / Time No Known Allergies Allergy Verified 07/10/20 14:55 Home Medications Medication Instructions Recorded Confirmed Last Taken Type Amlodipine Besylate [Norvasc] 5 mg PO DAILY #30 tablet 07/10/20 01/11/21 Unknown Rx Baclofen 20 mg PO Q12H PRN #18 tablet 11/06/20 01/11/21 Unknown Rx Ibuprofen [Motrin 800 MG tab] 800 mg PO Q8HR PRN #30 tablet 11/06/20 01/11/21 Unknown Rx Active Meds: Active Medications Trimethoprim/Sulfamethoxazole (Sulfamethoxazole/Trimethoprim 800/160mg Ds Tab) 1 each PO Q12HR STEVEN; Protocol Stop: 01/16/21 02:14 Last Admin: 01/11/21 10:12 Dose: Not Given Documented by: Mental Status Exam - Vital signs Last Vital Signs Temp 97.6 F 01/10/21 21:10 Pulse 80 01/10/21 21:10 Resp 18 01/10/21 21:10 BP 139/115 01/10/21 21:10 Pulse Ox 98 01/10/21 21:10 Results Result Diagrams: 01/10/21 21:57 01/10/21 21:57 Abnormal lab results 01/10/21 01/10/21 01/10/21 Range/Units 21:57 21:57 21:57 RBC (3.65-5.03) M/mm3 Hgb (11.8-15.2) gm/dl Hct (35.5-45.6) % Lymph % (Auto) (13.4-35.0) % [place] % (Auto) (0.0-7.3) % Eos % (Auto) (0.0-4.3) % Seg Neutrophils % (40.0-70.0) % Potassium 3.5 L (3.6-5.0) mmol/L Glucose 115 H (75-100) mg/dL Urine WBC (Auto) (0.0-6.0) /HPF Salicylates < 0.3 L (2.8-20.0) mg/dL Acetaminophen 5.0 L (10.0-30.0) ug/mL 01/10/21 01/10/21 Range/Units 21:57 22:10 RBC 5.51 H (3.65-5.03) M/mm3 Hgb 16.7 H (11.8-15.2) gm/dl Hct 50.2 H (35.5-45.6) % Lymph % (Auto) 47.1 H (13.4-35.0) % [place] % (Auto) 9.0 H (0.0-7.3) % Eos % (Auto) 5.7 H (0.0-4.3) % Seg Neutrophils % 37.2 L (40.0-70.0) % Potassium (3.6-5.0) mmol/L Glucose (75-100) mg/dL Urine WBC (Auto) 10.0 H (0.0-6.0) /HPF Salicylates (2.8-20.0) mg/dL Acetaminophen (10.0-30.0) ug/mL All other labs normal.
== END 2021-01-11 12:40 | disposition home or self-care (01) ==
LOC: ED 20:56
DX: N39.0 Urinary tract infection, site not specified (principal); R45.851 Suicidal ideations; R45.850 Homicidal ideations; I10 Essential (primary) hypertension; F25.1 Schizoaffective disorder, depressive type; G43.909 Migraine, unspecified, not intractable, without status migrainosus; F14.90 Cocaine use, unspecified, uncomplicated; F17.200 Nicotine dependence, unspecified, uncomplicated; Z79.899 Other long term (current) drug therapy; Z98.890 Other specified postprocedural states
CPT/HCPCS: 36415; 80048; 80307; 80320; 81001; 85025; 87086; 99283; 99284; G0480

== ENCOUNTER 2021-04-03 11:20 | Emergency (ER) | payer MEDICARE ==
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
[2021-04-03 13:27] LABS: Mean Corpuscular HGB Conc 34 % (32-34); Red Cell Distribution Width 13.9 % (13.2-15.2)
[2021-04-03 13:34] LABS: Hematocrit 46.3 % (35.5-45.6); Hemoglobin 15.6 gm/dl (11.8-15.2); Mean Corpuscular Volume 90 fl (84-94); Platelet Count 249 K/mm3 (140-440); Red Blood Count 5.13 M/mm3 (3.65-5.03)
[2021-04-03 13:39] LABS: BUN/Creatinine Ratio 12; Blood Urea Nitrogen 12 mg/dL (9-20); Calcium 9.2 mg/dL (8.4-10.2); Hemolysis Index 7
[2021-04-03] MEDS ORDERED: IBUPROFEN 800 MG TAB PO ONE (18:29)
[2021-04-03 18:34] LABS: Amphetamine Screen,Urine PRESUMPTIVE POSITIVE; Cannabinoid Screen,Urine PRESUMPTIVE POSITIVE; Cocaine Screen,Urine PRESUMPTIVE POSITIVE
[2021-04-03 18:49] LABS: Benzodiazepines Screen,Urine PRESUMPTIVE NEGATIVE; Methadone Screen,Urine PRESUMPTIVE NEGATIVE; Opiate Screen,Urine PRESUMPTIVE NEGATIVE
[2021-04-04] MEDS ORDERED: ACETAMINOPHEN 500 MG TAB PO ONE (00:17)
[2021-04-04] MEDS ORDERED: ZIPRASIDONE MESYLATE 20 MG VIAL IM ONE (01:57)
[2021-04-04] MEDS ORDERED: LORazepam 2 MG/ML VIAL IM ONE (01:58)
--- NOTE | 2021-04-04 11:00 | Consultation ---
History of Present Illness - Reason for Consult Consult date: 04/04/21 Reason for consult: Mental health evaluation - History of Present Psychiatric Illness Per Note: Patient presents with the problems and psychiatric requests. He has a long history of problems with both feet. He reports having chronic pain. He describes it as a pzzy-kqv-meaudsk. It is in the plantar aspect of both feet distally. He is not diabetic. There is no fevers or chills but has no cough or congestion. He states he has tried changing shoes. He has been on multiple mshu-uvh-azboizr medications. Nothing seems to control the pain. The pain is constant and burning. He also request to see psychiatric services because he feels as though he is in a hostile environment. Patient states that he just cannot control his environment. He feels like he is out of it. He states that he is not suicidal. He is not hearing voices telling him to do anything. He is not homicidal. He states that he had been on Depakote before and that seemed to help. Sebastián Cordova is a 50y/o male with history of Bipolar schizophrenia. In my interview with the patient, he presents with paranoia and delusions. The patient reports that " they are trying to hurt me, it looks like m in a dream work , like move characters. The patient reports using Cocaine about couple of days ago. He denies having suicidal ideation but admits homicidal ideation and auditory/ visual hallucinations voices saying everything." PAST PSYCHIATRIC HISTORY Diagnoses: Bipolar schizophrenia Suicide attempts or Self-harm behavior: Yes in 2006 Prior psychiatric hospitalizations: Yes Substance Abuse history: cocaine, meth, THC Previous psychiatric medications tried: Yes multiple Outpatient treatment: Yes noncompliant PAST MEDICAL HISTORY: Chronic pain Family Psychiatric History: None reported or documented SOCIAL HISTORY Marital Status: Living Arrangements: Homeless but says he can stay with a friend Employment Status: Unemployed, disabled Access to guns/weapons: None reported Education: Ninth grade History of Abuse: None reported Legal History: Yes REVIEW OF SYSTEMS Constitutional: Negative for weight loss ENT: Negative for stridor Respiratory: Negative for cough or hemoptysis All other systems reviewed and are negative MENTAL STATUS EXAMINATION General Appearance: Dressed appropriately. Behavior: Cooperative Mood: "irritable" Affect: Congruent with stated mood Speech: Normal tone, and pace Thought Process: Goal directed Suicidal Ideation: Yes Homicidal Ideation: Denies Hallucinations: Auditory Delusions: Paranoid Insight and Judgment: Limited Memory/Cognition: Limited ASSESSMENT Schizoaffective Disorder, Bypolar Type Cocaine Use Disorder Noncompliance with medical regimen and other treatments Treatment Plan Depakote 250mg po BID Zyprexa 10mg qhs continue 1013 Trazodone 50mg po qhs The patient to comply with previously prescribed medications Risks, benefits and alternatives of medications discussed with the patient, questions answered and consent obtained from patient. PSYCHOTHERAPY: Supportive psychotherapy provided MEDICAL: Per primary team DELIRIUM PRECAUTIONS: Please re-orient patient frequently, keep lights on during the day, and minimize benzodiazepines and opiates as these medications could worsen patient's confusion. C ARCHITECT: Defer to primary DISPOSITION: Recommend acute inpatient psychiatric hospitalization at this time. FOLLOW-UP: Will follow. Case staffed with Dr. Quintero Please contact with any questions and/or concerns. Thank you for the consult. Medications and Allergies Allergies Allergy/AdvReac Type Severity Reaction Status Date / Time No Known Allergies Allergy Verified 04/04/21 09:10 Home Medications Medication Instructions Recorded Confirmed Last Taken Type Amlodipine Besylate [Norvasc] 5 mg PO DAILY #30 tablet 07/10/20 01/11/21 Unknown Rx Baclofen 20 mg PO Q12H PRN #18 tablet 11/06/20 01/11/21 Unknown Rx Sulfamethoxazole/Trimethoprim 1 each PO Q12HR #10 tablet 01/11/21 Unknown Rx [Bactrim DS TAB] Divalproex ER [DepaKOTE ER] 500 mg PO BID #60 tablet 04/03/21 Unknown Rx Ibuprofen [Motrin 800 MG tab] 800 mg PO Q8HR PRN #30 tablet 04/03/21 Unknown Rx Mental Status Exam - Vital signs Last Vital Signs Temp 97.9 F 04/04/21 08:01 Pulse 77 04/04/21 08:01 Resp 20 04/04/21 08:01 BP 168/109 04/04/21 08:01 Pulse Ox 97 04/04/21 08:01 Results Result Diagrams: 04/03/21 12:42 04/03/21 12:42 Abnormal lab results 04/03/21 Range/Units 12:42 RBC 5.13 H (3.65-5.03) M/mm3 Hgb 15.6 H (11.8-15.2) gm/dl Hct 46.3 H (35.5-45.6) % All other labs normal.
--- NOTE | 2021-04-04 11:51 | Event Note ---
Date: 04/04/21 Patient to continue as a 1013. Seen by mental health assessment team. Please see their note below. Patient's blood pressure has been trending upward. Do not see a history of hypertension on the patient is past medical history. We will start the patient on Norvasc 5 mg daily. Patient is medically cleared at this time. Psychiatric Consult Note Patient Name: SEBASTIÁN GALLARDO Date of : 1970 Patient Status: Emergency Emergency Provider: WILBER CA Date: 04/04/21 10:56 Initialization Date: 04/04/21 10:56 History of Present Illness - Reason for Consult Consult date: 04/04/21 Reason for consult: Mental health evaluation - History of Present Psychiatric Illness Per Note: Patient presents with the problems and psychiatric requests. He has a long history of problems with both feet. He reports having chronic pain. He describes it as a cyfh-ppq-uewskuj. It is in the plantar aspect of both feet distally. He is not diabetic. There is no fevers or chills but has no cough or congestion. He states he has tried changing shoes. He has been on multiple ofqi-bsi-lujpcdy medications. Nothing seems to control the pain. The pain is constant and burning. He also request to see psychiatric services because he feels as though he is in a hostile environment. Patient states that he just cannot control his environment. He feels like he is out of it. He states that he is not suicidal. He is not hearing voices telling him to do anything. He is not homicidal. He states that he had been on Depakote before and that seemed to help. Sebastián Gallardo is a 50y/o male with history of Bipolar schizophrenia. In my interview with the patient, he presents with paranoia and delusions. The patient reports that " they are trying to hurt me, it looks like m in a dream work , like move characters. The patient reports using Cocaine about couple of days ago. He denies having suicidal ideation but admits homicidal ideation and auditory/ visual hallucinations voices saying everything." PAST PSYCHIATRIC HISTORY Diagnoses: Bipolar schizophrenia Suicide attempts or Self-harm behavior: Yes in 2006 Prior psychiatric hospitalizations: Yes Substance Abuse history: cocaine, meth, THC Previous psychiatric medications tried: Yes multiple Outpatient treatment: Yes noncompliant PAST MEDICAL HISTORY: Chronic pain Family Psychiatric History: None reported or documented SOCIAL HISTORY Marital Status: Living Arrangements: Homeless but says he can stay with a friend Employment Status: Unemployed, disabled Access to guns/weapons: None reported Education: Ninth grade History of Abuse: None reported Legal History: Yes REVIEW OF SYSTEMS Constitutional: Negative for weight loss ENT: Negative for stridor Respiratory: Negative for cough or hemoptysis All other systems reviewed and are negative MENTAL STATUS EXAMINATION General Appearance: Dressed appropriately. Behavior: Cooperative Mood: "irritable" Affect: Congruent with stated mood Speech: Normal tone, and pace Thought Process: Goal directed Suicidal Ideation: Yes Homicidal Ideation: Denies Hallucinations: Auditory Delusions: Paranoid Insight and Judgment: Limited Memory/Cognition: Limited ASSESSMENT Schizoaffective Disorder, Bypolar Type Cocaine Use Disorder Noncompliance with medical regimen and other treatments Treatment Plan Depakote 250mg po BID Zyprexa 10mg qhs continue 1013 Trazodone 50mg po qhs The patient to comply with previously prescribed medications Risks, benefits and alternatives of medications discussed with the patient, questions answered and consent obtained from patient. PSYCHOTHERAPY: Supportive psychotherapy provided MEDICAL: Per primary team DELIRIUM PRECAUTIONS: Please re-orient patient frequently, keep lights on during the day, and minimize benzodiazepines and opiates as these medications could worsen patient's confusion. CUSTOMER ORDER CLERK: Defer to primary DISPOSITION: Recommend acute inpatient psychiatric hospitalization at this time. FOLLOW-UP: Will follow. Case staffed with Dr. Quintero Please contact with any questions and/or concerns. Thank you for the consult.
[2021-04-04] MEDS: amLODIPine 5 MG TAB PO SCH (12:12)
[2021-04-04] MEDS: DIVALPROEX DR 250 MG TAB PO SCH ×2 (12:13→22:33)
[2021-04-05] MEDS ORDERED: ZIPRASIDONE MESYLATE 20 MG VIAL IM ONE (02:53)
[2021-04-05] MEDS ORDERED: LORazepam 2 MG/ML VIAL IM ONE (02:53)
[2021-04-05 08:35] VITALS: BP 150/101
[2021-04-05] MEDS: DIVALPROEX DR 250 MG TAB PO SCH (09:30)
[2021-04-05] MEDS: amLODIPine 5 MG TAB PO SCH (09:30)
--- NOTE | 2021-04-05 10:34 | Progress Note ---
Subjective - Reason for Consult Consult date: 04/05/21 Reason for consult: suicidal/homicidal ideation - Chief Complaint Chief complaint: The patient was seen today. He reports doing well, he denies having suicidal/homicidal denies hallucinations. SOCIAL HISTORY Marital Status: Living Arrangements: Homeless but says he can stay with a friend Employment Status: Unemployed, disabled Access to guns/weapons: None reported Education: Ninth grade History of Abuse: None reported Legal History: Yes REVIEW OF SYSTEMS Constitutional: Negative for weight loss ENT: Negative for stridor Respiratory: Negative for cough or hemoptysis All other systems reviewed and are negative MENTAL STATUS EXAMINATION General Appearance: Dressed appropriately. Behavior: Cooperative Mood: "ok" Affect: Congruent with stated mood Speech: Normal tone, and pace Thought Process: Goal directed Suicidal Ideation: denies Homicidal Ideation: Denies Hallucinations: denies Delusions: Paranoid Insight and Judgment: Limited Memory/Cognition: Limited ASSESSMENT Schizoaffective Disorder, Bypolar Type Cocaine Use Disorder Noncompliance with medical regimen and other treatments Treatment Plan ContinueDepakote 250mg po BID ContinueZyprexa 10mg qhs Discontinue 1013 Trazodone 50mg po qhs The patient to comply with previously prescribed medications Risks, benefits and alternatives of medications discussed with the patient, questions answered and consent obtained from patient. PSYCHOTHERAPY: Supportive psychotherapy provided MEDICAL: Per primary team DELIRIUM PRECAUTIONS: Please re-orient patient frequently, keep lights on during the day, and minimize benzodiazepines and opiates as these medications could worsen patient's confusion. 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 [facility] will provide patient with psychiatric out patient resources. FOLLOW-UP: Will sign off. Case staffed with Dr. Quintero Please contact with any questions and/or concerns. Thank you for the consult. Mental Status Exam - Vital signs Last Vital Signs Temp 98 F 04/05/21 08:35 Pulse 84 04/05/21 09:30 Resp 20 04/05/21 08:35 BP 150/101 04/05/21 09:30 Pulse Ox 99 04/05/21 08:35
== END 2021-04-05 12:02 | disposition home or self-care (01) ==
LOC: ED 11:20
DX: G89.29 Other chronic pain (principal); M79.672 Pain in left foot; M79.671 Pain in right foot; F99 Mental disorder, not otherwise specified; Z20.822 Contact with and (suspected) exposure to COVID-19; F32.9 Major depressive disorder, single episode, unspecified; I10 Essential (primary) hypertension; F20.9 Schizophrenia, unspecified
CPT/HCPCS: 36415; 80048; 80307; 85027; 96372; 99284; J2060; J3486; U0003; 80320; G0480